=== PATIENT | female | born 1980 | race African-American/Black ===

== ENCOUNTER 2017-08-14 06:52 | Emergency (ER) | payer SELFPAY ==
--- NOTE | 2017-08-14 07:41 | EDPHYS ---
Physician Documentation [facility] Name: Courtney Schuster Age: 37 yrs Sex: Female : 1980 Arrival Date: 08/14/2017 Time: 06:53 Bed 16 Private MD: ED Physician Maxwell Marinelli HPI: 08/14 07:37 This 37 yrs old Black Female presents to ER via Ambulatory with complaints of Ear Pain. rn 07:37 The patient presents with pain. The complaints affect the left ear and left cheek. rn Onset: The symptoms/episode began/occurred 4 day(s) ago. Severity of symptoms: At their worst the symptoms were moderate in the emergency department the symptoms have improved. The patient has not experienced similar symptoms in the past. The patient has not recently seen a physician. Reports left ear and cheek pain, no fever, no drainage, no trauma, states has had problem with teeth before, used oragel and didn't work, no trouble swallowing.. 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 - Social history:: Smoking status: Patient uses tobacco products, smokes one-half pack cigarettes per day. - Family history:: not pertinent. - Hospitalizations: : No recent hospitalization is reported. ROS: 07:37 Constitutional: Negative for fever, chills, and weight loss, Eyes: Negative for injury, rn pain, redness, and discharge, ENT: + left ear/cheek pain Neck: Negative for injury, pain, and swelling, Cardiovascular: Negative for chest pain, palpitations, and edema, Respiratory: Negative for shortness of breath, cough, wheezing, and pleuritic chest pain, Abdomen/GI: Negative for abdominal pain, nausea, vomiting, diarrhea, and constipation, Back: Negative for injury and pain, MS/Extremity: Negative for injury and deformity, Skin: Negative for injury, rash, and discoloration, Neuro: Negative for headache, weakness, numbness, tingling, and seizure. Exam: 07:37 Constitutional: This is a well developed, well nourished patient who is awake, alert, rn and in no acute distress. Head/Face: Normocephalic, atraumatic. Eyes: Pupils equal round and reactive to light, extra-ocular motions intact. Lids and lashes normal. Conjunctiva and sclera are non-icteric and not injected. Cornea within normal limits. Periorbital areas with no swelling, redness, or edema. ENT: Nares patent. No nasal discharge, no septal abnormalities noted. Tympanic membranes are normal and external auditory canals are clear. Poor dentition with multiple caries and fillings, no obvious swelling or infection Neck: Trachea midline, no thyromegaly or masses palpated, and no cervical lymphadenopathy. Supple, full range of motion without nuchal rigidity, or vertebral point tenderness. No Meningismus. Neuro: Awake and alert, GCS 15, oriented to person, place, time, and situation. Cranial nerves II-XII grossly intact. Motor strength 5/5 in all extremities. Sensory grossly intact. Cerebellar exam normal. Normal gait. Vital Signs: 06:59 BP 139 / 82; Pulse 86; Resp 14; Temp 97.1(TE); Pulse Ox 100% on R/A; Weight 86.18 kg lk1 (R); Height 5 ft. 3 in. (160.02 cm) (R); Pain 10/10; 07:56 BP 121 / 86; Pulse 75; Resp 14; Temp 97.8; Pulse Ox 99% on R/A; Pain 7/10; ch 06:59 Body Mass Index 33.66 (86.18 kg, 160.02 cm) lk1 MDM: 07:05 Patient medically screened. rn 07:37 Differential diagnosis: otitis media, otitis externa, acute otalgia, dentalgia. Data rn reviewed: vital signs, nurses notes, and as a result, I will discharge patient. Counseling: I had a detailed discussion with the patient and/or guardian regarding: the historical points, exam findings, and any diagnostic results supporting the discharge/admit diagnosis, the need for outpatient follow up, to return to the emergency department if symptoms worsen or persist or if there are any questions or concerns that arise at home. Special discussion: I discussed with the patient/guardian in detail that at this point there is no indication for admission to the hospital. It is understood, however, that if the symptoms persist or worsen the patient needs to return immediately for re-evaluation. Administered Medications: No medications were administered Disposition: 08/14/17 07:41 Discharged to Home. Impression: Otalgia, left ear. - Condition is Stable. - Discharge Instructions: Dental Pain, Earache. - Prescriptions for Amoxicillin 875 mg Oral Tablet - take 1 tablet by ORAL route every 12 hours for 10 days; 20 tablet. - Work release form, Medication Reconciliation Form, Thank You Letter, Antibiotic Education, Prescription Opioid Use form. - Follow up: Private Physician; When: As needed; Reason: Recheck today's complaints, Re-evaluation by your physician. - Problem is new. - Symptoms have improved. Signatures: Faiza Dumont, RN RN Maxwell Marinelli MD MD rn Kluge, Leah, RN RN lk1
--- NOTE | 2017-08-14 07:41 | ER ---
Nurse's Notes [facility] Name: Courtney Schuster Age: 37 yrs Sex: Female : 1980 Arrival Date: 08/14/2017 Time: 06:53 Bed 16 Private MD: Diagnosis: Otalgia, left ear Presentation: 08/14 06:57 Presenting complaint: Patient states: "Im having bad pain in my ear (left) and I can't lk1 touch it". Transition of care: patient was not received from another setting of care. Onset of symptoms was August 10, 2017. Care prior to arrival: None. 06:57 Method Of Arrival: Ambulatory lk1 06:57 Acuity: LEIF 3 lk1 Triage Assessment: 06:59 General: Appears in no apparent distress. Behavior is calm, cooperative, appropriate lk1 for age. Pain: Complains of pain in left ear Pain currently is 10 out of 10 on a pain scale. EENT: Reports pain in left ear. 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 - Social history:: Smoking status: Patient uses tobacco products, smokes one-half pack cigarettes per day. - Family history:: not pertinent. - Hospitalizations: : No recent hospitalization is reported. Screenin:56 Abuse screen: Denies threats or abuse. Denies injuries from another. Nutritional ch screening: No deficits noted. Tuberculosis screening: No symptoms or risk factors identified. Fall Risk None identified. Assessment: 07:56 General: Appears in no apparent distress. comfortable, Behavior is calm, cooperative, ch appropriate for age. Pain: Complains of pain in left ear and left cheek Pain currently is 7 out of 10 on a pain scale. Neuro: No deficits noted. Cardiovascular: No deficits noted. Respiratory: Airway is patent Respiratory effort is even, unlabored, Breath sounds are clear bilaterally. Derm: Skin is dry, Skin is normal. Vital Signs: 06:59 BP 139 / 82; Pulse 86; Resp 14; Temp 97.1(TE); Pulse Ox 100% on R/A; Weight 86.18 kg lk1 (R); Height 5 ft. 3 in. (160.02 cm) (R); Pain 10/10; 07:56 BP 121 / 86; Pulse 75; Resp 14; Temp 97.8; Pulse Ox 99% on R/A; Pain 7/10; ch 06:59 Body Mass Index 33.66 (86.18 kg, 160.02 cm) lk1 ED Course: 06:53 Patient arrived in ED. am2 06:58 Triage completed. [facility] 07:01 Arm band placed on right wrist. [facility] 07:05 Maxwell Marinelli MD is Attending Physician. rn 07:56 Faiza Dumont RN is Primary Nurse. ch 07:56 No apparent distress. Resting quietly. ch 07:56 Patient has correct armband on for positive identification. Placed in gown. Bed in low ch position. Call light in reach. Side rails up X 1. Adult w/ patient. 07:56 No provider procedures requiring assistance completed. Patient did not have IV access ch during this emergency room visit. Administered Medications: No medications were administered Outcome: 07:41 Discharge ordered by . rn 07:56 Discharged to home ambulatory, with family. 07:56 Condition: improved 07:56 Discharge instructions given to patient, family, Instructed on discharge instructions, follow up and referral plans. Demonstrated understanding of instructions, follow-up care, medications, Prescriptions given X 1. 07:59 Patient left the ED. Signatures: Faiza Dumont, RN RN Maxwell Marinelli MD MD rn Kluge, Leah, RN RN lk1 Breanne Cheek am2
[2017-08-14 08:12] VITALS: BP 121/86; TEMP 97.8; O2SAT 99
== END 2017-08-14 07:59 | disposition home or self-care (01) ==
LOC: ER 06:52
DX: H92.02 Otalgia, left ear; F17.210 Nicotine dependence, cigarettes, uncomplicated
CPT/HCPCS: 99282

== ENCOUNTER 2018-03-23 14:14 | Emergency (ER) | payer SELFPAY ==
[2018-03-23] MEDS ORDERED: IBUPROFEN 200 MG TAB PO ONE ×2 (15:26→15:28)
--- NOTE | 2018-03-23 15:28 | EDPHYS ---
Physician Documentation [facility] Name: Courtney Schuster Age: 37 yrs Sex: Female : 1980 Arrival Date: 03/23/2018 Time: 14:16 Bed 12 Private MD: ED Physician Bertin Lopez HPI: 03/23 14:34 This 37 yrs old Black Female presents to ER via Ambulatory with complaints of Ear Pain, rh1 Jaw Pain. 14:34 The patient presents with pain, that is acute. The complaints affect the left ear and rh1 left jaw. Onset: The symptoms/episode began/occurred 3 day(s) ago. Modifying factors: The symptoms are alleviated by nothing, the symptoms are aggravated by touching. Associated signs and symptoms: Pertinent negatives: cough, fever, nausea, rhinorrhea, sinus trouble, sore throat, vertigo, vomiting. Severity of symptoms: At their worst the symptoms were moderate in the emergency department the symptoms are unchanged. The patient has experienced a previous episode. The patient has not recently seen a physician. She began with left ear pain 3 days ago, and today pain is radiating into left jaw. She reports this am with brushing, has pain at left lower molar. She denies any fever/chills, N/V, sore throat, ear drainage, changes in hearing.. Historical: - Allergies: 14:21 Codeine; la1 14:21 Amoxicillin; la1 - PMHx: 14:21 None; la1 - PSHx: 14:21 ; la1 - Immunization history:: Adult Immunizations up to date. - Social history:: Smoking status: Patient uses tobacco products, smokes one pack cigarettes per day. - Ebola Screening: : No symptoms or risks identified at this time. ROS: 14:34 Constitutional: Negative for fever, chills rh1 14:34 ENT: Positive for dental pain, ear pain, Negative for drainage from ear(s), rhinorrhea, sinus congestion, sore throat, difficulty swallowing, difficulty handling secretions, hoarseness. 14:34 Abdomen/GI: Negative for nausea and vomiting. 14:34 Skin: Negative for cellulitis, rash. 14:34 Neuro: Negative for altered mental status, dizziness. 14:34 All other systems are negative. Exam: 14:34 Constitutional: This is a well developed, well nourished patient who is awake, alert, rh1 and in no acute distress. Head/Face: Normocephalic, atraumatic. 14:34 Neck: Trachea midline, and no cervical lymphadenopathy. Supple, full range of motion without nuchal rigidity. No Meningismus. Cardiovascular: Regular rate and rhythm with a normal S1 and S2. No gallops, murmurs, or rubs. No JVD. No pulse deficits. Respiratory: Lungs have equal breath sounds bilaterally, clear to auscultation. No rales, rhonchi or wheezes noted. No increased work of breathing. Abdomen/GI: Soft, non-tender, with normal bowel sounds. No distension. No guarding or rebound. No evidence of tenderness throughout. Skin: Warm, dry with normal turgor. Normal color with no rashes, no lesions, and no evidence of cellulitis. 14:34 ENT: External ear(s): are unremarkable, no pain with movement, Ear canal(s): are normal, clear, no cerumen impaction, no erythema, no foreign body, no purulent discharge, no swelling, TM's: are normal, no evidence of bulging, no dullness, no erythema, no fluid levels, no hemotympanum, no rupture, normal bony landmarks, Nose: Nasal mucosa: edematous, moist, Turbinates: are swollen bilaterally, Mouth: is normal, (-) tongue elevation (-) trismus no lip abnormalities, no mucosal abnormalities, Gums: reddened, swollen, on the lower left second molar and lower left first molar, moderate tenderness at medial and lateral gums, FOM soft, Posterior pharynx: is normal, airway is patent, no erythema, no exudate, no peritonsilar mass, no pooling of secretions, no swelling, normal tonsil apperance, normal sized tonsils, normal uvula appearance, normal uvula size, Dental exam: cellulitis, is not appreciated, dental caries, that is moderate, specifically in the lower left second molar (#18) and lower left first molar (#19), gum swelling, that is mild, pain, that is moderate, left tragus moderately tender, left coronoid tenderness. 14:34 Neuro: Orientation: is normal, to person, place \T\ time. Mentation: is normal, lucid, able to follow commands, Motor: is normal, moves all fours, Sensation: is normal, numbness, tingling. Vital Signs: 14:21 BP 130 / 100; Pulse 60; Resp 16; Temp 98.3; Pulse Ox 98% on R/A; Weight 86.18 kg; la1 Height 5 ft. 4 in. (162.56 cm); 14:21 Body Mass Index 32.61 (86.18 kg, 162.56 cm) la1 MDM: 14:34 Patient medically screened. rh1 15:27 Data reviewed: vital signs, nurses notes, lab test result(s), and as a result, I will rh1 discharge patient. Data interpreted: Pulse oximetry: on room air is 98 %. Interpretation: normal. Counseling: I had a detailed discussion with the patient and/or guardian regarding: the historical points, exam findings, and any diagnostic results supporting the discharge/admit diagnosis, lab results, the need for outpatient follow up, a dentist, a family practitioner, to return to the emergency department if symptoms worsen or persist or if there are any questions or concerns that arise at home. ED course: She has an appointment with her dentist this week, recommend continued follow up. 03/23 15:14 Order name: Urine Dipstick--Ancillary (enter results) [facility] 03/23 15:14 Order name: Urine --Ancillary (enter results) [facility] 03/23 15:02 Order name: Urine Dipstick-Ancillary (obtain specimen); Complete Time: 15:12 [facility] 03/23 15:02 Order name: Urine Test (obtain specimen); Complete Time: 15:12 [facility] 03/23 15:14 Order name: Urine Dipstick-Ancillary EDMS Administered Medications: 15:20 Drug: Motrin 600 mg Route: PO; hb Disposition: 16:50 Co-signature as Attending Physician, Bertin Lopez MD I agree with the assessment and kdr plan of care. Disposition: 03/23/18 15:27 Discharged to Home. Impression: Dental caries, Otalgia, left ear. - Condition is Stable. - Discharge Instructions: Dental Pain, Earache, Adult. - Prescriptions for Clindamycin HCl 300 mg Oral Capsule - take 1 capsule by ORAL route every 8 hours for 10 days; 30 capsule. Ibuprofen 600 mg Oral Tablet - take 1 tablet by ORAL route every 6 hours As needed take with food; 30 tablet. - Medication Reconciliation Form, Thank You Letter, Antibiotic Education, Prescription Opioid Use form. - Follow up: Private Physician; When: 1 - 2 days; Reason: Recheck today's complaints, Continuance of care, Re-evaluation by your physician. Follow up: Emergency Department; When: As needed; Reason: Fever > 102 F, If symptoms return, Trouble breathing, Worsening of condition. - Problem is new. - Symptoms have improved. Signatures: Dispatcher [employer] EDMS Bertin Lopez MD MD [facility] Jericho Culp RN RN la1 Sudha Zarate NP WINCHMAN/CRANE OPERATOR rh1 Vilma Samson, SIMEON RN hb Corrections: (The following items were deleted from the chart) 15:42 15:27 03/23/2018 15:27 Discharged to Home. Impression: Dental caries; Otalgia, left hb ear. Condition is Stable. Discharge Instructions: Dental Pain, Earache, Adult. Prescriptions for Clindamycin HCl 300 mg Oral Capsule - take 1 capsule by ORAL route every 8 hours for 10 days; 30 capsule, Ibuprofen 600 mg Oral Tablet - take 1 tablet by ORAL route every 6 hours As needed take with food; 30 tablet. and Forms are Medication Reconciliation Form, Thank You Letter, Antibiotic Education, Prescription Opioid Use. Follow up: Private Physician; When: 1 - 2 days; Reason: Recheck today's complaints, Continuance of care, Re-evaluation by your physician. Follow up: Emergency Department; When: As needed; Reason: Fever > 102 F, If symptoms return, Trouble breathing, Worsening of condition. Problem is new. Symptoms have improved. rh1
--- NOTE | 2018-03-23 15:28 | ER ---
Nurse's Notes [facility] Name: Courtney Schuster Age: 37 yrs Sex: Female : 1980 Arrival Date: 03/23/2018 Time: 14:16 Bed 12 Private MD: Diagnosis: Dental caries;Otalgia, left ear Presentation: 03/23 14:20 Presenting complaint: Patient states: left lower jaw pain, side of face pain since la1 . Transition of care: patient was not received from another setting of care. Onset of symptoms was March 23, 2018. Risk Assessment: Do you want to hurt yourself or someone else? Patient reports no desire to harm self or others. Initial Sepsis Screen: Does the patient meet any 2 criteria? No. Patient's initial sepsis screen is negative. Does the patient have a suspected source of infection? No. Patient's initial sepsis screen is negative. Care prior to arrival: None. 14:20 Method Of Arrival: Ambulatory la1 14:20 Acuity: LEIF 4 la1 Historical: - Allergies: 14:21 Codeine; la1 14:21 Amoxicillin; la1 - PMHx: 14:21 None; la1 - PSHx: 14:21 ; la1 - Immunization history:: Adult Immunizations up to date. - Social history:: Smoking status: Patient uses tobacco products, smokes one pack cigarettes per day. - Ebola Screening: : No symptoms or risks identified at this time. Screenin:24 Abuse screen: Denies threats or abuse. Nutritional screening: No deficits noted. la1 Tuberculosis screening: No symptoms or risk factors identified. Fall Risk None identified. Assessment: 14:23 General: Appears in no apparent distress. Behavior is calm, cooperative. Pain: la1 Complains of pain in left ear, left cheek and left jaw. Neuro: Level of Consciousness is awake, alert, obeys commands, Oriented to person, place, time, situation. Cardiovascular: Capillary refill < 3 seconds Patient's skin is warm and dry. Respiratory: Airway is patent Respiratory effort is even, unlabored, Respiratory pattern is regular, symmetrical, Breath sounds are clear bilaterally. GI: Abdomen is round non-distended. EENT: Ear canal clear on left ear and right ear Pinna with no deformity noted on left ear and right ear Poor dentition noted. Dental caries noted in lower left second molar (#18) and lower left first molar (#19). Vital Signs: 14:21 BP 130 / 100; Pulse 60; Resp 16; Temp 98.3; Pulse Ox 98% on R/A; Weight 86.18 kg; la1 Height 5 ft. 4 in. (162.56 cm); 14:21 Body Mass Index 32.61 (86.18 kg, 162.56 cm) la1 ED Course: 14:16 Patient arrived in ED. as 14:19 Sudha Zarate NP is PHCP. rh1 14:19 Bertin Lopez MD is Attending Physician. rh1 14:20 Triage completed. la1 14:21 Arm band placed on right wrist. la1 14:24 Call light in reach. la1 15:16 Urine Dipstick--Ancillary (enter results) Sent. hb 15:41 Vilma Samson RN is Primary Nurse. hb Administered Medications: 15:20 Drug: Motrin 600 mg Route: PO; hb Outcome: 15:27 Discharge ordered by . rh1 15:42 Patient left the ED. hb Signatures: Sade Allen Lee, RN RN la1 Sudha Zarate NP CHAIR FRAME BUILDER rh1 Vilma Samson, SIMEON RN hb
[2018-03-23 15:36] LABS: Urine Blood 1+ (NEG); Urine Glucose NEGATIVE (NEG); Urine Protein NEGATIVE (NEG)
[2018-03-23 15:47] VITALS: BP 130/100; TEMP 98.3; O2SAT 98
== END 2018-03-23 15:42 | disposition home or self-care (01) ==
LOC: ER 14:14
DX: K02.9 Dental caries, unspecified (principal); F17.210 Nicotine dependence, cigarettes, uncomplicated; Z88.1 Allergy status to other antibiotic agents; Z88.5 Allergy status to narcotic agent
CPT/HCPCS: 81003; 81025; 99283

== ENCOUNTER 2018-11-06 09:13 | Emergency (ER) | payer SELFPAY ==
[2018-11-06] MEDS ORDERED: LIDOCAINE 1% 20 ML MDV ONE (10:44)
[2018-11-06] MEDS ORDERED: MEPERIDINE HCL 50 MG/ML AMP ONE (10:44)
[2018-11-06] MEDS ORDERED: ONDANSETRON 4 MG (ODT) TAB ONE (10:44)
--- NOTE | 2018-11-06 12:19 | EDPHYS ---
Physician Documentation [facility] Name: Courtney Schuster Age: 38 yrs Sex: Female : 1980 Arrival Date: 11/06/2018 Time: 09:17 Bed 20 Private MD: ED Physician Bertin Lopez HPI: 11/06 11:09 This 38 yrs old Black Female presents to ER via Ambulatory with complaints of jr8 Toothache, Facial Swelling, Nausea. 11:09 The patient presents with pain, swelling. The problem is located in the mouth. Onset: jr8 The symptoms/episode began/occurred acutely, yesterday. Duration: The symptoms are continuous, and are unchanged since they started. Modifying factors: The symptoms are alleviated by nothing, the symptoms are aggravated by chewing, talking. Associated signs and symptoms: The patient has no apparent associated signs or symptoms. Severity of symptoms: At their worst the symptoms were moderate, in the emergency department the symptoms are unchanged. The patient has not experienced similar symptoms in the past. The patient has not recently seen a physician. Historical: - Allergies: 09:21 Amoxicillin; ss 09:21 Codeine; ss - Home Meds: :21 None [Active]; ss - PMHx: 09:21 None; ss - PSHx: 09:21 ; ss - Immunization history:: Adult Immunizations up to date. - Social history:: Smoking status: Patient uses tobacco products, smokes one-half pack cigarettes per day. - Ebola Screening: : Patient denies exposure to infectious person Patient denies travel to an Ebola-affected area in the 21 days before illness onset. ROS: 11:09 Eyes: Negative for injury, pain, redness, and discharge, ENT: Positive for dental pain jr8 and swelling Neck: Negative for injury, pain, and swelling, Cardiovascular: Negative for chest pain, palpitations, and edema, Respiratory: Negative for shortness of breath, cough, wheezing, and pleuritic chest pain, Abdomen/GI: Negative for abdominal pain, nausea, vomiting, diarrhea, and constipation, Back: Negative for injury and pain, MS/Extremity: Negative for injury and deformity, Skin: Negative for injury, rash, and discoloration, Neuro: Negative for headache, weakness, numbness, tingling, and seizure. Exam: 11:09 Eyes: Pupils equal round and reactive to light, extra-ocular motions intact. Lids and jr8 lashes normal. Conjunctiva and sclera are non-icteric and not injected. Cornea within normal limits. Periorbital areas with no swelling, redness, or edema. Neck: Trachea midline, no thyromegaly or masses palpated, and no cervical lymphadenopathy. Supple, full range of motion without nuchal rigidity, or vertebral point tenderness. No Meningismus. Cardiovascular: Regular rate and rhythm with a normal S1 and S2. No gallops, murmurs, or rubs. Normal PMI, no JVD. No pulse deficits. Respiratory: Lungs have equal breath sounds bilaterally, clear to auscultation and percussion. No rales, rhonchi or wheezes noted. No increased work of breathing, no retractions or nasal flaring. Abdomen/GI: Soft, non-tender, with normal bowel sounds. No distension or tympany. No guarding or rebound. No evidence of tenderness throughout. Back: No spinal tenderness. No costovertebral tenderness. Full range of motion. Skin: Warm, dry with normal turgor. Normal color with no rashes, no lesions, and no evidence of cellulitis. MS/ Extremity: Pulses equal, no cyanosis. Neurovascular intact. Full, normal range of motion. Neuro: Awake and alert, GCS 15, oriented to person, place, time, and situation. Cranial nerves II-XII grossly intact. Motor strength 5/5 in all extremities. Sensory grossly intact. Cerebellar exam normal. Normal gait. 11:09 Head/face: Noted is swelling, that is mild, of the left jaw, tenderness, that is mild, of the left jaw. 11:09 ENT: Exam is negative for earache, ear discharge, TM abnormalities, nasal discharge, peritonsillar abscess pharyngitis, exudate, Dental exam: abscess, that is mild, specifically in the lower left second bicuspid (#20), gum swelling, that is moderate, specifically in the lower left second bicuspid (#20), pain, that is moderate, specifically in the lower left second bicuspid (#20). Vital Signs: 09:21 BP 139 / 82; Pulse 73; Resp 16; Temp 97.5(TE); Pulse Ox 99% on R/A; Weight 88.45 kg; ss Height 5 ft. 3 in. (160.02 cm); Pain 8/10; 10:30 BP 136 / 86; Pulse 68; Resp 14; Pulse Ox 100% on R/A; hb 12:00 BP 132 / 80; Pulse 58; Resp 15; Pulse Ox 98% on R/A; hb 09:21 Body Mass Index 34.54 (88.45 kg, 160.02 cm) Procedures: 12:16 I \T\ D: Incision and drainage was performed for an abscess of the left lower left second jr8 bicuspid (#20) Incised with #11 blade. Drained small amount purulent fluid. Dressing: sterile 4x4 gauze, the patient tolerated the procedure well. Nerve block: (dental) of left inferior alveolar nerve, Medication: Lidocaine 1% without epinephrine Amount: 2 mls were injected, Effect: the patient's symptoms are improved, markedly, Set up for procedure. Performed by Shakir GONZALEZ Patient tolerated well. MDM: 10:05 Patient medically screened. jr8 12:16 Data reviewed: vital signs, nurses notes, and as a result, I will discharge patient. jr8 Data interpreted: Pulse oximetry: on room air is 98 %. Interpretation: normal. Counseling: I had a detailed discussion with the patient and/or guardian regarding: the historical points, exam findings, and any diagnostic results supporting the discharge/admit diagnosis, the need for outpatient follow up, a dentist, to return to the emergency department if symptoms worsen or persist or if there are any questions or concerns that arise at home. Administered Medications: 10:40 Drug: Demerol 50 mg Route: IM; Site: left ventrogluteal; hb 11:30 Follow up: Response: No adverse reaction hb 10:40 Drug: Zofran 4 mg Route: PO; hb 11:30 Follow up: Response: No adverse reaction hb 11:01 Drug: Lidocaine (1 %) 1 vials {Note: administered by CARLOS Schilling.} Volume: 20 ml; Route: hb Infiltration; 11:30 Follow up: Response: No adverse reaction hb Disposition: 14:17 Co-signature as Attending Physician, Bertin Lopez MD I agree with the assessment and kdr plan of care. Disposition: 11/06/18 12:18 Discharged to Home. Impression: Periapical abscess with sinus. - Condition is Stable. - Discharge Instructions: Dental Abscess, Dental Pain. - Prescriptions for Clindamycin HCl 300 mg Oral Capsule - take 1 capsule by ORAL route every 6 hours for 10 days; 40 capsule. Tramadol 50 mg Oral Tablet - take 2 tablet by ORAL route every 8 hours as needed; 12 tablet. - Work release form, Medication Reconciliation Form, Thank You Letter, Antibiotic Education, Prescription Opioid Use form. - Follow up: Private Physician; When: 2 - 3 days; Reason: Recheck today's complaints, Continuance of care, Re-evaluation by your physician. - Problem is new. - Symptoms have improved. Signatures: Bertin Lopez MD MD [facility] [address] Gisela Hugo RN RN Shakir Ni PA PA jr8 Vilma Samson RN RN Corrections: (The following items were deleted from the chart) 12:52 12:18 11/06/2018 12:18 Discharged to Home. Impression: Periapical abscess with sinus. hb Condition is Stable. Forms are Medication Reconciliation Form, Thank You Letter, Antibiotic Education, Prescription Opioid Use. Follow up: Private Physician; When: 2 - 3 days; Reason: Recheck today's complaints, Continuance of care, Re-evaluation by your physician. Problem is new. Symptoms have improved. jr8
--- NOTE | 2018-11-06 12:19 | ER ---
Nurse's Notes [facility] Name: Courtney Schuster Age: 38 yrs Sex: Female : 1980 Arrival Date: 11/06/2018 Time: 09:17 Bed 20 Private MD: Diagnosis: Periapical abscess with sinus Presentation: 11/06 09:20 Presenting complaint: Patient states: dental pain that began yesterday, facial swelling ss to area that began this morning. Transition of care: patient was not received from another setting of care. Onset of symptoms was November 05, 2018. Risk Assessment: Do you want to hurt yourself or someone else? Patient reports no desire to harm self or others. Initial Sepsis Screen: Does the patient meet any 2 criteria? No. Patient's initial sepsis screen is negative. Does the patient have a suspected source of infection? Yes: Other: dental. Care prior to arrival: None. 09:20 Method Of Arrival: Ambulatory ss 09:20 Acuity: LEIF 3 ss Historical: - Allergies: 09:21 Amoxicillin; ss 09:21 Codeine; ss - Home Meds: 09:21 None [Active]; ss - PMHx: 09:21 None; ss - PSHx: 09:21 ; ss - Immunization history:: Adult Immunizations up to date. - Social history:: Smoking status: Patient uses tobacco products, smokes one-half pack cigarettes per day. - Ebola Screening: : Patient denies exposure to infectious person Patient denies travel to an Ebola-affected area in the 21 days before illness onset. Screenin:19 Abuse screen: Denies threats or abuse. Denies injuries from another. Nutritional hb screening: No deficits noted. Tuberculosis screening: No symptoms or risk factors identified. Fall Risk None identified. Assessment: 09:45 General: Appears in no apparent distress. Behavior is calm, cooperative. Pain: Pain hb currently is 9 out of 10 on a pain scale. Neuro: Level of Consciousness is awake, alert, obeys commands, Oriented to person, place, time, situation. Cardiovascular: Capillary refill < 3 seconds Patient's skin is warm and dry. Respiratory: Airway is patent Respiratory effort is even, unlabored, Respiratory pattern is regular, symmetrical. GI: No signs and/or symptoms were reported involving the gastrointestinal system. : No signs and/or symptoms were reported regarding the genitourinary system. EENT: left sided facial swellilng. Derm: Skin is intact, is healthy with good turgor. Musculoskeletal: No signs and/or symptoms reported regarding the musculoskeletal system. 11:00 Reassessment: Patient appears in no apparent distress at this time. No changes from hb previously documented assessment. Patient and/or family updated on plan of care and expected duration. Pain level reassessed. Patient is alert, oriented x 3, equal unlabored respirations, skin warm/dry/pink. 12:03 Reassessment: Patient appears in no apparent distress at this time. Patient and/or hb family updated on plan of care and expected duration. Pain level reassessed. Patient is alert, oriented x 3, equal unlabored respirations, skin warm/dry/pink. Vital Signs: 09:21 BP 139 / 82; Pulse 73; Resp 16; Temp 97.5(TE); Pulse Ox 99% on R/A; Weight 88.45 kg; ss Height 5 ft. 3 in. (160.02 cm); Pain 8/10; 10:30 BP 136 / 86; Pulse 68; Resp 14; Pulse Ox 100% on R/A; hb 12:00 BP 132 / 80; Pulse 58; Resp 15; Pulse Ox 98% on R/A; hb 09:21 Body Mass Index 34.54 (88.45 kg, 160.02 cm) ED Course: 09:17 Patient arrived in ED. as 09:20 Triage completed. ss 09:21 Arm band placed on left wrist. ss 10:05 Shakir Ni PA is PHCP. 8 10:05 Bertin Lopez MD is Attending Physician. jr8 10:19 Vilma Samson, SIMEON is Primary Nurse. hb 10:19 Patient has correct armband on for positive identification. Bed in low position. Call hb light in reach. Side rails up X 1. 12:50 No provider procedures requiring assistance completed. Patient did not have IV access hb during this emergency room visit. Administered Medications: 10:40 Drug: Demerol 50 mg Route: IM; Site: left ventrogluteal; hb 11:30 Follow up: Response: No adverse reaction hb 10:40 Drug: Zofran 4 mg Route: PO; hb 11:30 Follow up: Response: No adverse reaction hb 11:01 Drug: Lidocaine (1 %) 1 vials {Note: administered by CARLOS Schilling.} Volume: 20 ml; Route: hb Infiltration; 11:30 Follow up: Response: No adverse reaction hb Outcome: 12:18 Discharge ordered by MD. jones 12:50 Discharged to home ambulatory, with significant other. hb 12:50 Condition: stable 12:50 Discharge instructions given to patient, Instructed on discharge instructions, follow up and referral plans. medication usage, Demonstrated understanding of instructions, follow-up care, medications, Prescriptions given X 2. 12:52 Patient left the ED. hb Signatures: Sade Allen Shelby, RN RN ss Shakir Ni PA PA jr8 Baxter, Heather, SIMEON RN hb
[2018-11-06 13:19] VITALS: TEMP 97.5
[2018-11-06 13:22] VITALS: BP 132/80; O2SAT 98
== END 2018-11-06 12:52 | disposition home or self-care (01) ==
LOC: ER 09:13
PROC: 0C9XXZ0 Drainage of Lower Tooth, External Approach, Single (ICD-10-PCS; principal; 2018-11-06)
DX: K04.6 Periapical abscess with sinus (principal); Z88.5 Allergy status to narcotic agent; Z88.0 Allergy status to penicillin; F17.210 Nicotine dependence, cigarettes, uncomplicated
CPT/HCPCS: 96372; 99283; J2175

== ENCOUNTER 2018-12-26 22:55 | Emergency (ER) | payer SELFPAY ==
--- NOTE | 2018-12-26 23:33 | ER ---
Nurse's Notes [facility] Name: Courtney Schuster Age: 38 yrs Sex: Female : 1980 Arrival Date: 12/26/2018 Time: 22:56 Bed 19 Private MD: Diagnosis: Periapical abscess without sinus Presentation: 12/26 23:05 Presenting complaint: Patient states: around 0800 today morning I notice my left jaw rr5 getting swollen but its getting big now. I took an appointment to dentist on Sunday. denies pain. 23:05 Transition of care: patient was not received from another setting of care. Onset of rr5 symptoms was December 26, 2018. Risk Assessment: Do you want to hurt yourself or someone else? Patient reports no desire to harm self or others. Initial Sepsis Screen: Does the patient meet any 2 criteria? No. Patient's initial sepsis screen is negative. Does the patient have a suspected source of infection? No. Patient's initial sepsis screen is negative. Care prior to arrival: Medication(s) given: ibuprofen. 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 - Social history:: Smoking status: Patient uses tobacco products, smokes one pack cigarettes per day. Patient/guardian denies using alcohol, street drugs. - Ebola Screening: : Patient negative for fever greater than or equal to 101.5 degrees Fahrenheit, and additional compatible Ebola Virus Disease symptoms Patient denies exposure to infectious person Patient denies travel to an Ebola-affected area in the 21 days before illness onset. Screenin:15 Abuse screen: Denies threats or abuse. Denies injuries from another. Nutritional rr5 screening: No deficits noted. Tuberculosis screening: No symptoms or risk factors identified. Fall Risk None identified. Total Mckeon Fall Scale indicates No Risk (0-24 pts). Assessment: 23:05 General: Appears in no apparent distress. comfortable, Behavior is calm, cooperative, rr5 appropriate for age. Pain: Denies pain. Neuro: Level of Consciousness is awake, alert, obeys commands, Oriented to person, place, time, situation, Appropriate for age. Cardiovascular: Capillary refill < 3 seconds Patient's skin is warm and dry. Respiratory: Airway is patent Respiratory effort is even, labored, Respiratory pattern is regular, symmetrical. GI: No signs and/or symptoms were reported involving the gastrointestinal system. : No signs and/or symptoms were reported regarding the genitourinary system. EENT: swelling left molar and left cheek. Reports swelling left cheek area. 23:05 Derm: No signs and/or symptoms reported regarding the dermatologic system. rr5 Musculoskeletal: Circulation, motion, and sensation intact. Capillary refill < 3 seconds. 23:50 Reassessment: Patient appears in no apparent distress at this time. Patient is alert, rr5 oriented x 3, equal unlabored respirations, skin warm/dry/pink. discharge instruction given and explained without complaints made. Vital Signs: 23:05 BP 148 / 95; Pulse 85; Resp 17; Temp 98.3; Pulse Ox 100% ; Weight 88.45 kg; Height 5 rr5 ft. 4 in. (162.56 cm); Pain 0/10; 23:50 BP 135 / 82; Pulse 80; Resp 16; Pulse Ox 98% on R/A; rr5 23:05 Body Mass Index 33.47 (88.45 kg, 162.56 cm) rr5 ED Course: 22:56 Patient arrived in ED. am2 22:59 Marty Oro RN is Primary Nurse. rr5 23:02 Demetra Owens FNP-C is [facility]. snw 23:02 Esteban Tidwell MD is Attending Physician. snw 23:05 Arm band placed on right wrist. rr5 23:05 Patient has correct armband on for positive identification. Bed in low position. rr5 23:13 Triage completed. rr5 23:47 No provider procedures requiring assistance completed. Patient did not have IV access rr5 during this emergency room visit. Administered Medications: 23:40 Drug: Clindamycin 300 mg Route: PO; rr5 23:50 Follow up: Response: Medication administered at discharge. rr5 Outcome: 23:32 Discharge ordered by MD. bartlett 23:47 Discharged to home ambulatory. rr5 23:47 Condition: stable 23:47 Discharge instructions given to patient, Instructed on discharge instructions, follow up and referral plans. medication usage, Demonstrated understanding of instructions, follow-up care, medications, Prescriptions given X 2. 23:51 Patient left the ED. rr5 Signatures: Demetra Owens, WATER FILTER CLEANER-C WATER FILTER CLEANER-Csnw Breanne Cheek Raymond, RN RN rr5
--- NOTE | 2018-12-26 23:34 | EDPHYS ---
Physician Documentation [facility] Name: Courtney Schuster Age: 38 yrs Sex: Female : 1980 Arrival Date: 12/26/2018 Time: 22:56 Bed 19 Private MD: ED Physician Esteban Tidwell HPI: 12/26 23:27 This 38 yrs old Black Female presents to ER via Ambulatory with complaints of Jaw Pain snw - swelling. 23:27 Onset: The symptoms/episode began/occurred acutely. Associated signs and symptoms: snw Pertinent positives: left mandibular swelling. Modifying factors: The patient symptoms are alleviated by denies pain but noted increased swelling. It is unknown whether or not the patient has had similar symptoms in the past. dental appt on Sunday. 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 - Social history:: Smoking status: Patient uses tobacco products, smokes one pack cigarettes per day. Patient/guardian denies using alcohol, street drugs. - Ebola Screening: : Patient negative for fever greater than or equal to 101.5 degrees Fahrenheit, and additional compatible Ebola Virus Disease symptoms Patient denies exposure to infectious person Patient denies travel to an Ebola-affected area in the 21 days before illness onset. ROS: 23:28 Constitutional: Negative for fever, chills, and weight loss, Eyes: Negative for injury, snw pain, redness, and discharge, Neck: Negative for injury, pain, and swelling, Cardiovascular: Negative for chest pain, palpitations, and edema, Respiratory: Negative for shortness of breath, cough, wheezing, and pleuritic chest pain, Abdomen/GI: Negative for abdominal pain, nausea, vomiting, diarrhea, and constipation, Back: Negative for injury and pain, : Negative for injury, bleeding, discharge, and swelling, MS/Extremity: Negative for injury and deformity, Skin: Negative for injury, rash, and discoloration, Neuro: Negative for headache, weakness, numbness, tingling, and seizure, Psych: Negative for depression, anxiety, suicide ideation, homicidal ideation, and hallucinations. 23:28 ENT: Positive for mandibular edema. Exam: 23:28 Constitutional: This is a well developed, well nourished patient who is awake, alert, snw and in no acute distress. Head/Face: Normocephalic, atraumatic. Eyes: Pupils equal round and reactive to light, extra-ocular motions intact. Lids and lashes normal. Conjunctiva and sclera are non-icteric and not injected. Cornea within normal limits. Periorbital areas with no swelling, redness, or edema. Neck: Trachea midline, no thyromegaly or masses palpated, and no cervical lymphadenopathy. Supple, full range of motion without nuchal rigidity, or vertebral point tenderness. No Meningismus. Chest/axilla: Normal chest wall appearance and motion. Nontender with no deformity. No lesions are appreciated. Cardiovascular: Regular rate and rhythm with a normal S1 and S2. No gallops, murmurs, or rubs. Normal PMI, no JVD. No pulse deficits. Respiratory: Lungs have equal breath sounds bilaterally, clear to auscultation and percussion. No rales, rhonchi or wheezes noted. No increased work of breathing, no retractions or nasal flaring. Abdomen/GI: Soft, non-tender, with normal bowel sounds. No distension or tympany. No guarding or rebound. No evidence of tenderness throughout. Back: No spinal tenderness. No costovertebral tenderness. Full range of motion. Skin: Warm, dry with normal turgor. Normal color with no rashes, no lesions, and no evidence of cellulitis. MS/ Extremity: Pulses equal, no cyanosis. Neurovascular intact. Full, normal range of motion. Neuro: Awake and alert, GCS 15, oriented to person, place, time, and situation. Cranial nerves II-XII grossly intact. Motor strength 5/5 in all extremities. Sensory grossly intact. Cerebellar exam normal. Normal gait. Psych: Awake, alert, with orientation to person, place and time. Behavior, mood, and affect are within normal limits. 23:28 ENT: Dental exam: abscess, that is moderate, specifically in the lower left first molar (#19), not fluctuant. Vital Signs: 23:05 BP 148 / 95; Pulse 85; Resp 17; Temp 98.3; Pulse Ox 100% ; Weight 88.45 kg; Height 5 rr5 ft. 4 in. (162.56 cm); Pain 0/10; 23:50 BP 135 / 82; Pulse 80; Resp 16; Pulse Ox 98% on R/A; rr5 23:05 Body Mass Index 33.47 (88.45 kg, 162.56 cm) rr5 MDM: 23:02 Patient medically screened. snw 23:36 Data reviewed: vital signs, nurses notes. Data interpreted: Pulse oximetry: on room air snw is 100 %. Interpretation: normal. Counseling: I had a detailed discussion with the patient and/or guardian regarding: the historical points, exam findings, and any diagnostic results supporting the discharge/admit diagnosis, the presence of at least one elevated blood pressure reading (>120/80) during this emergency department visit, the need for outpatient follow up, to return to the emergency department if symptoms worsen or persist or if there are any questions or concerns that arise at home. Special discussion: I have referred the patient to see his PCP for further evaluation of high blood pressure. Based on the history and exam findings, there is no indication for further emergent testing or inpatient evaluation. I discussed with the patient/guardian the need to see a dentist for further evaluation of the symptoms. I discussed with the patient/guardian the need to see the primary care provider for further evaluation of the symptoms. Administered Medications: 23:40 Drug: Clindamycin 300 mg Route: PO; rr5 23:50 Follow up: Response: Medication administered at discharge. rr5 Disposition: 12/27 06:58 Co-signature as Attending Physician, Esteban Tidwell MD Available for consultation at ps1 all times . Disposition: 12/26/18 23:32 Discharged to Home. Impression: Periapical abscess without sinus. - Condition is Stable. - Discharge Instructions: Dental Abscess, Root Canal, Diet and Dental Disease. - Prescriptions for Clindamycin HCl 150 mg Oral Capsule - take 1 capsule by ORAL route every 6 hours for 10 days; 40 capsule. chlorhexidine gluconate 0.12 % Mucous Membrane mouthwash - place 15 milliliter by MUCOUS MEMBRANE route 2 times per day after brushing teeth, swish in mouth for 30 seconds then spit out; 480 milliliter. - Medication Reconciliation Form, Thank You Letter, Antibiotic Education, Prescription Opioid Use form. - Follow up: Private Physician; When: 2 - 3 days; Reason: Recheck today's complaints, Continuance of care, Re-evaluation by your physician. Follow up: Emergency Department; When: As needed; Reason: Worsening of condition. Signatures: Demetra Owens, TRANSPORTATION SOLUTIONS MANAGER-C TRANSPORTATION SOLUTIONS MANAGER-Csnw Esteban Tidwell MD MD ps1 Marty Oro RN RN rr5 Corrections: (The following items were deleted from the chart) 12/26 23:51 23:32 12/26/2018 23:32 Discharged to Home. Impression: Periapical abscess without rr5 sinus. Condition is Stable. Forms are Medication Reconciliation Form, Thank You Letter, Antibiotic Education, Prescription Opioid Use. Follow up: Private Physician; When: 2 - 3 days; Reason: Recheck today's complaints, Continuance of care, Re-evaluation by your physician. Follow up: Emergency Department; When: As needed; Reason: Worsening of condition. snw
[2018-12-26] MEDS ORDERED: CLINDAMYCIN HCL 150 MG CAP ONE (23:37)
[2018-12-27 00:30] VITALS: TEMP 98.3
[2018-12-27 00:31] VITALS: BP 135/82; O2SAT 98
== END 2018-12-26 23:51 | disposition home or self-care (01) ==
LOC: ER 22:55
DX: K04.7 Periapical abscess without sinus (principal); F17.210 Nicotine dependence, cigarettes, uncomplicated; Z88.0 Allergy status to penicillin; Z88.1 Allergy status to other antibiotic agents; Z88.5 Allergy status to narcotic agent
CPT/HCPCS: 99283

== ENCOUNTER 2019-02-15 00:22 | Emergency (ER) | payer SELFPAY ==
[2019-02-15 01:07] LABS: Absolute Lymphocytes (CBC) 2.7 K/uL (0.7-4.9); Basophils % 1.1 % (0-1.3); Lymphocytes % 36.3 % (15.3-44.8); MPV 9.6 fL (7.6-11.3); RBC Red Blood Cell Count 4.86 M/uL (3.86-4.86)
[2019-02-15 01:15] LABS: Albumin 3.8 g/dL (3.4-5.0); Bilirubin Total 0.2 mg/dL (0.2-1.0); Potassium 3.7 mmol/L (3.5-5.1); Protein, Total 7.2 g/dL (6.4-8.2)
[2019-02-15] MEDS ORDERED: FENTANYL CITR 100 MCG/2 ML ONE (01:20)
[2019-02-15] MEDS ORDERED: ONDANSETRON 4 MG/2 ML VIAL ONE (01:20)
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
[2019-02-15 04:13] VITALS: BP 120/60; TEMP 97.8; O2SAT 98
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
== END 2019-02-15 04:04 | disposition home or self-care (01) ==
LOC: ER 00:22
DX: S13.4XXA Sprain of ligaments of cervical spine, initial encounter (principal); S30.0XXA Contusion of lower back and pelvis, initial encounter; V40.5XXA Car driver injured in collision with pedestrian or animal in traffic accident, initial encounter; Z88.0 Allergy status to penicillin; Z88.1 Allergy status to other antibiotic agents; Z88.5 Allergy status to narcotic agent
CPT/HCPCS: 36415; 70450; 71260; 72125; 74177; 80053; 85025; 96374; 96375; 99284; J2405; J3010; Q9967

== ENCOUNTER 2019-04-19 11:12 | Emergency (ER) | payer SELFPAY ==
[2019-04-19] MEDS ORDERED: HYDROCODONE/APAP 10/325 TAB ONE (12:18)
[2019-04-19 12:57] LABS: Absolute Lymphocytes (CBC) 2.4 K/uL (0.7-4.9); Basophils % 0.6 % (0-1.3); Hematocrit 36.9 % (36.0-45.0); Lymphocytes % 36.5 % (15.3-44.8); MPV 9.3 fL (7.6-11.3)
[2019-04-19 13:07] LABS: ALT/SGPT 24 U/L (12-78); AST/SGOT 18 U/L (15-37); Albumin 3.5 g/dL (3.4-5.0); Alkaline Phosphatase 71 U/L (45-117); BUN Blood Urea Nitrogen 9 mg/dL (7-18); Bicarbonate 27 mmol/L (21-32); Bilirubin Total 0.4 mg/dL (0.2-1.0); Glucose Level 87 mg/dL (74-106); Potassium 3.7 mmol/L (3.5-5.1); Protein, Total 7.1 g/dL (6.4-8.2); Sodium Level 142 mmol/L (136-145)
--- NOTE | 2019-04-19 13:10 | EDPHYS ---
Physician Documentation [facility] Name: Courtney Schuster Age: 38 yrs Sex: Female : 1980 Arrival Date: 04/19/2019 Time: 11:14 Bed 25 Private MD: ED Physician Maxwell Marinelli HPI: 04/19 12:20 This 38 yrs old Black Female presents to ER via Ambulatory with complaints of Mouth nh Problem. 12:20 The patient presents with pain, swelling. The problem is located in the lower left nh third molar and lower left second molar. Onset: The symptoms/episode began/occurred 2 day(s) ago. Duration: The symptoms are continuous. Modifying factors: The symptoms are alleviated by nothing, the symptoms are aggravated by chewing, talking. Associated signs and symptoms: Pertinent positives: nausea, vomiting. Severity of symptoms: At their worst the symptoms were moderate, just prior to arrival, in the emergency department the symptoms are unchanged. The patient has not experienced similar symptoms in the past. The patient has not recently seen a physician. 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 - Social history:: Smoking status: Patient/guardian denies using tobacco. - Ebola Screening: : No symptoms or risks identified at this time. ROS: 12:20 Constitutional: Negative for fever, chills, and weight loss, Eyes: Negative for injury, nh pain, redness, and discharge, Neck: Negative for injury, pain, and swelling, Cardiovascular: Negative for chest pain, palpitations, and edema, Respiratory: Negative for shortness of breath, cough, wheezing, and pleuritic chest pain, Abdomen/GI: Negative for abdominal pain, nausea, vomiting, diarrhea, and constipation, Back: Negative for injury and pain, : Negative for injury, bleeding, discharge, and swelling, MS/Extremity: Negative for injury and deformity, Skin: Negative for injury, rash, and discoloration, Neuro: Negative for headache, weakness, numbness, tingling, and seizure, Psych: Negative for depression, anxiety, suicide ideation, homicidal ideation, and hallucinations. 12:20 ENT: Positive for dental pain, Negative for sore throat, difficulty swallowing, difficulty handling secretions. Exam: 12:20 Constitutional: This is a well developed, well nourished patient who is awake, alert, nh and in no acute distress. Head/Face: Normocephalic, atraumatic. Eyes: Pupils equal round and reactive to light, extra-ocular motions intact. Lids and lashes normal. Conjunctiva and sclera are non-icteric and not injected. Cornea within normal limits. Periorbital areas with no swelling, redness, or edema. Neck: Trachea midline, no thyromegaly or masses palpated, and no cervical lymphadenopathy. Supple, full range of motion without nuchal rigidity, or vertebral point tenderness. No Meningismus. Chest/axilla: Normal chest wall appearance and motion. Nontender with no deformity. No lesions are appreciated. Cardiovascular: Regular rate and rhythm with a normal S1 and S2. No gallops, murmurs, or rubs. Normal PMI, no JVD. No pulse deficits. Respiratory: Lungs have equal breath sounds bilaterally, clear to auscultation and percussion. No rales, rhonchi or wheezes noted. No increased work of breathing, no retractions or nasal flaring. Abdomen/GI: Soft, non-tender, with normal bowel sounds. No distension or tympany. No guarding or rebound. No evidence of tenderness throughout. Back: No spinal tenderness. No costovertebral tenderness. Full range of motion. 12:20 ENT: External ear(s): are unremarkable, Ear canal(s): are normal, TM's: are normal, Nose: is normal, Mouth: is normal, Posterior pharynx: is normal, Dental exam: gum swelling, that is moderate, specifically in the lower left second molar and lower left third molar, pain. Vital Signs: 11:41 BP 107 / 77; Pulse 73; Resp 16; Temp 98.3; Pulse Ox 100% on R/A; Weight 90.26 kg; hb Height 5 ft. 3 in. (160.02 cm); Pain 10/10; 13:19 BP 110 / 78; Pulse 71; Resp 18; Temp 98; Pulse Ox 100% on R/A; Pain 0/10; mg2 11:41 Body Mass Index 35.25 (90.26 kg, 160.02 cm) MDM: 11:58 Patient medically screened. vt 13:08 Data reviewed: vital signs, nurses notes, lab test result(s), I have discussed the vt patient's presentation/case with the attending Emergency Department Physician; and as a result, I will discharge patient. Counseling: I had a detailed discussion with the patient and/or guardian regarding: the historical points, exam findings, and any diagnostic results supporting the discharge/admit diagnosis, lab results, the need for outpatient follow up, to return to the emergency department if symptoms worsen or persist or if there are any questions or concerns that arise at home. 04/19 12:12 Order name: CBC with Diff; Complete Time: 13:06 vt 04/19 12:12 Order name: CMP; Complete Time: 13:08 vt Administered Medications: 12:19 Drug: [place] 10 mg-325 mg 1 tabs Route: PO; mg2 13:12 Follow up: Response: No adverse reaction; RASS: Alert and Calm (0) mg2 Disposition: 13:36 Co-signature as Attending Physician, Maxwell Marinelli MD. rn Disposition: 04/19/19 13:09 Discharged to Home. Impression: Periapical abscess without sinus. - Condition is Stable. - Discharge Instructions: Dental Abscess. - Prescriptions for Clindamycin HCl 300 mg Oral Capsule - take 1 capsule by ORAL route every 6 hours for 10 days; 40 capsule. Tramadol 50 mg Oral Tablet - take 1 tablet by ORAL route every 8 hours as needed; 12 tablet. - Medication Reconciliation Form, Thank You Letter, Antibiotic Education, Prescription Opioid Use form. - Follow up: Private Physician; When: 2 - 3 days; Reason: Recheck today's complaints. - Problem is new. - Symptoms are unchanged. Signatures: Dispatcher [employer] EDMS Talia Jasmine FNP [facility] Maxwell Marinelli MD MD rn Baxter, Heather, RN RN hb Gardose, Michele, RN RN mg2 Corrections: (The following items were deleted from the chart) 13:20 13:09 04/19/2019 13:09 Discharged to Home. Impression: Periapical abscess without mg2 sinus. Condition is Stable. Forms are Medication Reconciliation Form, Thank You Letter, Antibiotic Education, Prescription Opioid Use. Follow up: Private Physician; When: 2 - 3 days; Reason: Recheck today's complaints. Problem is new. Symptoms are unchanged. nh
--- NOTE | 2019-04-19 13:10 | ER ---
Nurse's Notes [facility] Name: Courtney Schuster Age: 38 yrs Sex: Female : 1980 Arrival Date: 04/19/2019 Time: 11:14 Bed 25 Private MD: Diagnosis: Periapical abscess without sinus Presentation: 04/19 11:40 Presenting complaint: Left lower molar pain that radiates to left ear x 2 days, N/V/D hb since this morning. Transition of care: patient was not received from another setting of care. Onset of symptoms was April 18, 2019. Risk Assessment: Do you want to hurt yourself or someone else? Patient reports no desire to harm self or others. Initial Sepsis Screen: Does the patient meet any 2 criteria? No. Patient's initial sepsis screen is negative. Does the patient have a suspected source of infection? No. Patient's initial sepsis screen is negative. Care prior to arrival: None. 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 - Social history:: Smoking status: Patient/guardian denies using tobacco. - Ebola Screening: : No symptoms or risks identified at this time. Screenin:22 Abuse screen: Denies threats or abuse. Denies injuries from another. Nutritional mg2 screening: No deficits noted. Tuberculosis screening: No symptoms or risk factors identified. Fall Risk None identified. Assessment: 12:19 General: Appears in no apparent distress. comfortable, Behavior is calm, cooperative. mg2 Pain: Complains of pain in teeth Pain radiates to left ear Pain currently is 8 out of 10 on a pain scale. Quality of pain is described as aching, Pain began gradually, 1 day ago. Is intermittent. Neuro: Level of Consciousness is awake, alert, obeys commands, Oriented to person, place, time, situation. Cardiovascular: Capillary refill < 3 seconds Patient's skin is warm and dry. Respiratory: Airway is patent Respiratory effort is even, unlabored, Respiratory pattern is regular, symmetrical. GI: No signs and/or symptoms were reported involving the gastrointestinal system. : No signs and/or symptoms were reported regarding the genitourinary system. EENT: Reports toothache since yesterday. . Derm: Skin is intact, is healthy with good turgor, Skin is pink, warm \T\ dry. normal. 13:19 Reassessment: Patient appears in no apparent distress at this time. Patient denies pain mg2 at this time. Patient states feeling better. Patient states symptoms have improved. Vital Signs: 11:41 BP 107 / 77; Pulse 73; Resp 16; Temp 98.3; Pulse Ox 100% on R/A; Weight 90.26 kg; hb Height 5 ft. 3 in. (160.02 cm); Pain 10/10; 13:19 BP 110 / 78; Pulse 71; Resp 18; Temp 98; Pulse Ox 100% on R/A; Pain 0/10; mg2 11:41 Body Mass Index 35.25 (90.26 kg, 160.02 cm) hb ED Course: 11:14 Patient arrived in ED. as 11:41 Triage completed. hb 11:41 Arm band placed on. hb 11:58 Talia Jasmine FNP is [facility]. nh 11:58 Maxwell Marinelli MD is Attending Physician. nh 12:14 Riley Tang, SIMEON is Primary Nurse. mg2 12:22 No provider procedures requiring assistance completed. Patient did not have IV access mg2 during this emergency room visit. 12:22 Initial lab(s) drawn, by me, sent to lab. Patient maintains SpO2 saturation greater jp3 than 95% on room air. 12:23 Patient has correct armband on for positive identification. Pulse ox on. NIBP on. Door mg2 closed. Warm blanket given. 12:23 Bed in low position. Call light in reach. Warm blanket given. Verbal reassurance given. jp3 Pulse ox on. NIBP on. 12:24 CMP Sent. jp3 12:24 CBC with Diff Sent. jp3 Administered Medications: 12:19 Drug: Codorus 10 mg-325 mg 1 tabs Route: PO; mg2 13:12 Follow up: Response: No adverse reaction; RASS: Alert and Calm (0) mg2 Outcome: 13:09 Discharge ordered by . nh 13:20 Discharged to home ambulatory, with family. mg2 13:20 Condition: good 13:20 Discharge instructions given to patient, family, Instructed on discharge instructions, follow up and referral plans. medication usage, Demonstrated understanding of instructions, follow-up care, medications, Prescriptions given X 2. 13:20 Patient left the ED. mg2 Signatures: Talia Jasmine, SOLE ASSESSOR SOLE ASSESSOR nc Sade Allen Heather, RN RN Riley Tang RN RN [facility] [place] [facility] Epps jp3
[2019-04-19 15:37] VITALS: O2SAT 100
[2019-04-19 15:39] VITALS: BP 110/78; TEMP 98
== END 2019-04-19 13:20 | disposition home or self-care (01) ==
LOC: ER 11:12
DX: K04.7 Periapical abscess without sinus (principal); Z88.0 Allergy status to penicillin; Z88.1 Allergy status to other antibiotic agents; Z88.5 Allergy status to narcotic agent
CPT/HCPCS: 36415; 80053; 85025; 99284

== ENCOUNTER 2020-03-30 13:42 | Emergency (ER) | payer SELFPAY ==
[2020-03-30] MEDS ORDERED: CETIRIZINE HCL 5 MG TABLET PO ONE (17:00)
[2020-03-30] MEDS ORDERED: FENTANYL CITR 100 MCG/2 ML ONE (17:05)
[2020-03-30] MEDS ORDERED: FAMOTIDINE 20 MG TAB ONE (17:06)
[2020-03-30] MEDS ORDERED: dexAMETHasone 4 MG TAB ONE (17:06)
[2020-03-30] MEDS ORDERED: DOXYCYCLINE 100 MG CAP PO ONE (17:06)
--- NOTE | 2020-03-30 17:50 | RAD REPORT ---
EXAM DESCRIPTION: US - Extremity Nonvascular Limited - 03/30/2020 5:42 pm CLINICAL HISTORY: Swelling right lower elbow COMPARISON: None FINDINGS: Diffuse edema is present within the subcutaneous tissues. An abscess/hematoma is not seen. IMPRESSION: Diffuse edema within the subcutaneous tissues of the lower elbow may indicate a cellulit is and should be correlated clinically
--- NOTE | 2020-03-30 18:02 | EDPHYS ---
Physician Documentation [facility] Name: Courtney Schuster Age: 39 yrs Sex: Female : 1980 Arrival Date: 03/30/2020 Time: 13:45 Bed 16 Private MD: ED Physician Fady Corey HPI: 03/30 16:50 This 39 yrs old Black Female presents to ER via Ambulatory with complaints of Arm snw Problem. 16:50 The patient or guardian complains of decreased range of motion, pain, that is acute. snw The complaints affect the left elbow. Context: The problem was sustained at an unknown location, resulted from unknown cause. Onset: The symptoms/episode began/occurred suddenly. Associated signs and symptoms: Pertinent positives: decreased range of motion, swelling, warmth, of the left elbow. Severity of symptoms: At their worst the symptoms were moderate, severe. The patient has not experienced similar symptoms in the past. The patient has not recently seen a physician. 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 - Social history:: Smoking status: Patient reports the use of cigarette tobacco products, smokes one-half pack cigarettes per day. ROS: 16:50 Constitutional: Negative for fever, chills, and weight loss, Eyes: Negative for injury, snw pain, redness, and discharge, ENT: Negative for injury, pain, and discharge, Neck: Negative for injury, pain, and swelling, Cardiovascular: Negative for chest pain, palpitations, and edema, Respiratory: Negative for shortness of breath, cough, wheezing, and pleuritic chest pain, Abdomen/GI: Negative for abdominal pain, nausea, vomiting, diarrhea, and constipation, Back: Negative for injury and pain, : Negative for injury, bleeding, discharge, and swelling, Neuro: Negative for headache, weakness, numbness, tingling, and seizure, Psych: Negative for depression, anxiety, suicide ideation, homicidal ideation, and hallucinations. 16:50 MS/extremity: Positive for decreased range of motion, erythema, pain, swelling, tenderness, warmth. 16:50 Skin: Positive for cellulitis, of the left elbow. Exam: 16:49 Constitutional: This is a well developed, well nourished patient who is awake, alert, snw and in no acute distress. Head/Face: Normocephalic, atraumatic. Eyes: Pupils equal round and reactive to light, extra-ocular motions intact. Lids and lashes normal. Conjunctiva and sclera are non-icteric and not injected. Cornea within normal limits. Periorbital areas with no swelling, redness, or edema. ENT: Nares patent. No nasal discharge, no septal abnormalities noted. Tympanic membranes are normal and external auditory canals are clear. Oropharynx with no redness, swelling, or masses, exudates, or evidence of obstruction, uvula midline. Mucous membranes moist. Neck: Trachea midline, no thyromegaly or masses palpated, and no cervical lymphadenopathy. Supple, full range of motion without nuchal rigidity, or vertebral point tenderness. No Meningismus. Chest/axilla: Normal chest wall appearance and motion. Nontender with no deformity. No lesions are appreciated. Cardiovascular: Regular rate and rhythm with a normal S1 and S2. No gallops, murmurs, or rubs. Normal PMI, no JVD. No pulse deficits. Respiratory: Lungs have equal breath sounds bilaterally, clear to auscultation and percussion. No rales, rhonchi or wheezes noted. No increased work of breathing, no retractions or nasal flaring. Abdomen/GI: Soft, non-tender, with normal bowel sounds. No distension or tympany. No guarding or rebound. No evidence of tenderness throughout. Back: No spinal tenderness. No costovertebral tenderness. Full range of motion. Neuro: Awake and alert, GCS 15, oriented to person, place, time, and situation. Cranial nerves II-XII grossly intact. Motor strength 5/5 in all extremities. Sensory grossly intact. Cerebellar exam normal. Normal gait. Psych: Awake, alert, with orientation to person, place and time. Behavior, mood, and affect are within normal limits. 16:49 Musculoskeletal/extremity: ROM: limited active range of motion due to pain, limited passive range of motion due to pain, Circulation is intact in all extremities. Sensation intact. Compartment Syndrome exam of affected extremity: is normal. 16:49 Skin: Appearance: normal except for affected area, cellulitis, that is moderate, well demarcated, on the left elbow, induration, that is moderate is noted, located on the left elbow. Vital Signs: 14:19 BP 136 / 86; Pulse 67; Resp 16 S; Temp 97.2(TE); Pulse Ox 100% on R/A; Weight 97.52 kg; ca1 Height 5 ft. 4 in. (162.56 cm) (R); Pain 7/10; 17:07 BP 146 / 95; Pulse 64; Resp 17; Pulse Ox 100% on R/A; tw2 18:11 BP 137 / 87; Pulse 57; Resp 17; Pulse Ox 100% on R/A; tw2 14:19 Body Mass Index 36.90 (97.52 kg, 162.56 cm) ca1 MDM: 16:34 Patient medically screened. snw 18:01 Data reviewed: vital signs, nurses notes. Data interpreted: Pulse oximetry: on room air snw is 100 %. Interpretation: normal. Counseling: I had a detailed discussion with the patient and/or guardian regarding: the historical points, exam findings, and any diagnostic results supporting the discharge/admit diagnosis, the presence of at least one elevated blood pressure reading (>120/80) during this emergency department visit, radiology results, the need for outpatient follow up, to return to the emergency department if symptoms worsen or persist or if there are any questions or concerns that arise at home. Response to treatment: the patient's symptoms have markedly improved after treatment. Special discussion: Based on the history and exam findings, there is no indication for further emergent testing or inpatient evaluation. I discussed with the patient/guardian the need to see the primary care provider for further evaluation of the symptoms. 03/30 16:45 Order name: Extrmt Nonvasular Limited: left medial condyle for abscess; Complete snw Time: 17:56 Administered Medications: 17:00 Drug: fentaNYL (PF) 50 mcg {Note: RASS 0.} Route: IM; Site: right deltoid; tw2 18:13 Follow up: Response: No adverse reaction; Pain is decreased; RASS: Alert and Calm (0) tw2 17:02 Drug: Doxycycline 100 mg Route: PO; tw2 18:13 Follow up: Response: No adverse reaction tw2 17:02 Drug: Pepcid 20 mg Route: PO; tw2 18:13 Follow up: Response: No adverse reaction tw2 17:02 Drug: Decadron 8 mg Route: PO; tw2 18:13 Follow up: Response: No adverse reaction tw2 17:07 Drug: ZyrTEC - Cetirizine 10 mg Route: PO; tw2 18:13 Follow up: Response: No adverse reaction tw2 Disposition: 03/31 07:00 Co-signature as Attending Physician, Fady Corey MD I agree with the assessment and [facility] plan of care. Disposition: 03/30/20 18:01 Discharged to Home. Impression: Cellulitis of left upper limb. - Condition is Stable. - Discharge Instructions: Cellulitis, Adult, Heat Therapy. - Prescriptions for Zyrtec 10 mg Oral Tablet - take 1 tablet by ORAL route once daily As needed; 20 tablet. Doxycycline Hyclate 100 mg Oral Tablet - take 1 tablet by ORAL route every 12 hours; 20 tablet. Prednisone 20 mg Oral Tablet - take 2 tablet by ORAL route once daily for 5 days; 10 tablet. Pepcid 20 mg Oral Tablet - take 1 tablet by ORAL route once daily; 20 tablet. - Medication Reconciliation Form, Thank You Letter, Antibiotic Education, Prescription Opioid Use, Work release form form. - Follow up: Emergency Department; When: As needed; Reason: Worsening of condition. Follow up: Private Physician; When: 2 - 3 days; Reason: Recheck today's complaints, Continuance of care, Re-evaluation by your physician. Signatures: Dispatcher [employer] Fady Gonzáles MD MD cha Waters, Shelly, CERTIFIED VETERINARY TECHNICIAN-C CERTIFIED VETERINARY TECHNICIAN-Reneew Nena rTiana, RN RN tw2 Charlene Anaya RN RN ca1 Corrections: (The following items were deleted from the chart) 03/30 18:22 18:01 03/30/2020 18:01 Discharged to Home. Impression: Cellulitis of left upper limb. tw2 Condition is Stable. Forms are Work release form, Medication Reconciliation Form, Thank You Letter, Antibiotic Education, Prescription Opioid Use. Follow up: Emergency Department; When: As needed; Reason: Worsening of condition. Follow up: Private Physician; When: 2 - 3 days; Reason: Recheck today's complaints, Continuance of care, Re-evaluation by your physician. snw
--- NOTE | 2020-03-30 18:02 | ER ---
Nurse's Notes [facility] Name: Courtney Schuster Age: 39 yrs Sex: Female : 1980 Arrival Date: 03/30/2020 Time: 13:45 Bed 16 Private MD: Diagnosis: Cellulitis of left upper limb Presentation: 03/30 14:19 Chief complaint: Patient states: Pain on R side of hand and L inner elbow, started ca1 yesterday. Denies injury. Coronavirus screen: Client denies travel out of the [place] in the last 14 days. At this time, the client does not indicate any symptoms associated with coronavirus-19. Ebola Screen: Patient negative for fever greater than or equal to 101.5 degrees Fahrenheit, and additional compatible Ebola Virus Disease symptoms Patient denies exposure to infectious person. Patient denies travel to an Ebola-affected area in the 21 days before illness onset. No symptoms or risks identified at this time. Initial Sepsis Screen: Does the patient meet any 2 criteria? No. Patient's initial sepsis screen is negative. Does the patient have a suspected source of infection? No. Patient's initial sepsis screen is negative. Risk Assessment: Do you want to hurt yourself or someone else? Patient reports no desire to harm self or others. Onset of symptoms was March 30, 2020. 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 - Social history:: Smoking status: Patient reports the use of cigarette tobacco products, smokes one-half pack cigarettes per day. Screenin:08 Abuse screen: Denies threats or abuse. Nutritional screening: No deficits noted. tw2 Tuberculosis screening: No symptoms or risk factors identified. Fall Risk None identified. Assessment: 16:33 General: Appears in no apparent distress. obese, well groomed, Behavior is calm, tw2 cooperative, appropriate for age. Pain: Complains of pain in left arm. Neuro: Level of Consciousness is awake, alert, obeys commands, Oriented to person, place, time, situation. Cardiovascular: Heart tones S1 S2 Patient's skin is warm and dry. Respiratory: Airway is patent Respiratory effort is even, unlabored, Respiratory pattern is regular, symmetrical, Breath sounds are clear bilaterally. GI: No signs and/or symptoms were reported involving the gastrointestinal system. : No signs and/or symptoms were reported regarding the genitourinary system. EENT: No signs and/or symptoms were reported regarding the EENT system. Derm: Skin is intact, is healthy with good turgor. Derm: Reports increased pain and redness with warmth noted to LEFT arm posterior side. Musculoskeletal: Circulation, motion, and sensation intact. Range of motion: intact in all extremities. 17:07 Reassessment: Patient appears in no apparent distress at this time. No changes from tw2 previously documented assessment. Patient and/or family updated on plan of care and expected duration. Pain level reassessed. Patient is alert, oriented x 3, equal unlabored respirations, skin warm/dry/pink. 18:11 Reassessment: Patient appears in no apparent distress at this time. No changes from tw2 previously documented assessment. Patient and/or family updated on plan of care and expected duration. Pain level reassessed. Patient is alert, oriented x 3, equal unlabored respirations, skin warm/dry/pink. 18:22 Reassessment: Patient appears in no apparent distress at this time. No changes from tw2 previously documented assessment. Patient and/or family updated on plan of care and expected duration. Pain level reassessed. Patient is alert, oriented x 3, equal unlabored respirations, skin warm/dry/pink. Vital Signs: 14:19 BP 136 / 86; Pulse 67; Resp 16 S; Temp 97.2(TE); Pulse Ox 100% on R/A; Weight 97.52 kg; ca1 Height 5 ft. 4 in. (162.56 cm) (R); Pain 7/10; 17:07 BP 146 / 95; Pulse 64; Resp 17; Pulse Ox 100% on R/A; tw2 18:11 BP 137 / 87; Pulse 57; Resp 17; Pulse Ox 100% on R/A; tw2 14:19 Body Mass Index 36.90 (97.52 kg, 162.56 cm) ca1 ED Course: 13:45 Patient arrived in ED. mr 14:20 Triage completed. ca1 14:21 Arm band placed on right wrist. ca1 16:33 Demetra Scanlon FNP-C is [facility]. snw 16:33 Fady Corey MD is Attending Physician. snw 16:33 Bed in low position. Call light in reach. Side rails up X 1. Pulse ox on. NIBP on. Warm tw2 blanket given. 16:35 Nena Triana, RN is Primary Nurse. tw2 17:42 US Extrmty Nonvasular Limited: left medial condyle for abscess In Process Unspecified. EDMS 18:22 No provider procedures requiring assistance completed. Patient did not have IV access tw2 during this emergency room visit. Administered Medications: 17:00 Drug: fentaNYL (PF) 50 mcg {Note: RASS 0.} Route: IM; Site: right deltoid; tw2 18:13 Follow up: Response: No adverse reaction; Pain is decreased; RASS: Alert and Calm (0) tw2 17:02 Drug: Doxycycline 100 mg Route: PO; tw2 18:13 Follow up: Response: No adverse reaction tw2 17:02 Drug: Pepcid 20 mg Route: PO; tw2 18:13 Follow up: Response: No adverse reaction tw2 17:02 Drug: Decadron 8 mg Route: PO; tw2 18:13 Follow up: Response: No adverse reaction tw2 17:07 Drug: ZyrTEC - Cetirizine 10 mg Route: PO; tw2 18:13 Follow up: Response: No adverse reaction tw2 Outcome: 18:01 Discharge ordered by . snw 18:22 Discharged to home ambulatory. tw2 18:22 Condition: stable 18:22 Discharge instructions given to patient, Instructed on discharge instructions, follow up and referral plans. medication usage, Demonstrated understanding of instructions, follow-up care, medications, Prescriptions given X 4. 18:22 Patient left the ED. tw2 Signatures: Dispatcher [employer] EDMS Demetra Scanlon FNP-C LIAISON ENGINEER-Csnw Britney Mccormick Nena Triana, RN RN tw2 Charlene Anaya RN RN ca1
[2020-03-30 20:25] VITALS: TEMP 97.2; O2SAT 100
[2020-03-30 20:29] VITALS: BP 137/87
== END 2020-03-30 18:22 | disposition home or self-care (01) ==
LOC: ER 13:42
DX: L03.114 Cellulitis of left upper limb (principal); F17.210 Nicotine dependence, cigarettes, uncomplicated; Z88.0 Allergy status to penicillin; Z88.1 Allergy status to other antibiotic agents; Z88.5 Allergy status to narcotic agent
CPT/HCPCS: 76882; 96372; 99284; J3010; J8540

== ENCOUNTER 2020-04-19 10:33 | Emergency (ER) | payer SELFPAY ==
[2020-04-19] MEDS ORDERED: TETRACAINE HCL 0.5% 4ML OPTH ONE (11:13)
[2020-04-19] MEDS ORDERED: FLUORESCEIN SODIUM 1 MG/WRAP ONE (11:13)
--- NOTE | 2020-04-19 11:28 | ER ---
Nurse's Notes [facility] Name: Courtney Schuster Age: 39 yrs Sex: Female : 1980 Arrival Date: 04/19/2020 Time: 10:36 Bed 18 Private MD: Diagnosis: Uveitis Presentation: 04/19 10:52 Chief complaint: Patient states: redness and pain to R eye that began this morning. ss Coronavirus screen: Client denies travel out of the [place] in the last 14 days. Ebola Screen: Patient denies exposure to infectious person. Patient denies travel to an Ebola-affected area in the 21 days before illness onset. Initial Sepsis Screen: Does the patient meet any 2 criteria? No. Patient's initial sepsis screen is negative. Does the patient have a suspected source of infection? No. Patient's initial sepsis screen is negative. Risk Assessment: Do you want to hurt yourself or someone else? Patient reports no desire to harm self or others. 10:52 Method Of Arrival: Ambulatory ss 10:52 Acuity: LEIF 4 ss 11:40 Onset of symptoms was April 19, 2020. 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 - Social history:: Smoking status: Patient denies any tobacco usage or history of. Screenin:39 Abuse screen: Denies threats or abuse. Nutritional screening: No deficits noted. ll1 Tuberculosis screening: No symptoms or risk factors identified. Fall Risk None identified. Total Mckeon Fall Scale indicates No Risk (0-24 pts). Assessment: 11:00 General: Appears uncomfortable, Behavior is calm, cooperative, appropriate for age. ll1 Pain: Complains of pain in R eye Quality of pain is described as burning, aching. Neuro: No deficits noted. Cardiovascular: No deficits noted. Respiratory: No deficits noted. GI: No deficits noted. EENT: Eyes are tearing on outer aspect of conjuctiva of right eye, iris of right eye and inner aspect of conjuctiva of right eye Sclera/Cornea are reddened in outer aspect of conjuctiva of right eye, iris of right eye and inner aspect of conjuctiva of right eye Reports pain in right eye. Vital Signs: 10:52 BP 121 / 84; Pulse 60; Resp 16; Temp 98.1(TE); Pulse Ox 100% on R/A; Weight 88.45 kg; Height 5 ft. 4 in. (162.56 cm); Pain 7/10; 10:52 Body Mass Index 33.47 (88.45 kg, 162.56 cm) ED Course: 10:36 Patient arrived in ED. ds1 10:42 Shakir Ni PA is PHCP. jr8 10:42 Mawxell Marinelli MD is Attending Physician. jr8 10:47 Anthony Hidalgo RN is Primary Nurse. ll1 10:53 Triage completed. 10:54 Arm band placed on right wrist. 11:23 Carlos Alcantar MD is Referral Physician. jr8 11:39 Patient has correct armband on for positive identification. Bed in low position. Call ll1 light in reach. Side rails up X 1. Pulse ox on. NIBP on. 11:39 No provider procedures requiring assistance completed. Patient did not have IV access ll1 during this emergency room visit. Administered Medications: 11:12 Drug: Tetracaine Drops 0.5 % 1 drops Route: Ophthalmic; Site: both eyes; ll1 11:40 Follow up: Response: No adverse reaction; RASS: Alert and Calm (0) ll1 11:40 Follow up: Response: No adverse reaction; RASS: Alert and Calm (0) 1 11:12 Drug: Fluorescein Strip 1 strip Route: Ophthalmic; Site: both eyes; ll1 11:40 Follow up: Response: No adverse reaction; RASS: Alert and Calm (0) ll1 Outcome: 11:27 Discharge ordered by . jr8 11:39 Discharged to home ambulatory. ll1 11:39 Condition: stable 11:39 Discharge instructions given to patient, Instructed on discharge instructions, follow up and referral plans. medication usage, Demonstrated understanding of instructions, follow-up care, medications, Prescriptions given X 2. 11:41 Patient left the ED. ll1 Signatures: Nataliya Sin ds1 Gisela Hugo RN RN Shakir Ni PA PA jr8 Anthony Hidalgo RN RN ll1
--- NOTE | 2020-04-19 11:28 | EDPHYS ---
Physician Documentation [facility] Name: Courtney Schuster Age: 39 yrs Sex: Female : 1980 Arrival Date: 04/19/2020 Time: 10:36 Bed 18 Private MD: ED Physician Maxwell Marinelli HPI: 04/19 12:47 This 39 yrs old Black Female presents to ER via Ambulatory with complaints of Redness jr8 of Eye. 12:47 The patient is experiencing pain, redness, tearing, The patient sustained None. to the jr8 right eye, caused by an unknown mechanism. Onset: The symptoms/episode began/occurred acutely, yesterday. Duration: the symptoms are continuous. Aggravated by light, Alleviated by nothing. Associated signs and symptoms: Pertinent positives: None. Patient wears soft contacts. Severity of symptoms: At their worst the symptoms were moderate in the emergency department the symptoms are unchanged. The patient has not experienced similar symptoms in the past. The patient has not recently seen a physician. denies sleeping in contacts or FB sensation . 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 - Social history:: Smoking status: Patient denies any tobacco usage or history of. ROS: 12:47 ENT: Negative for injury, pain, and discharge, Neck: Negative for injury, pain, and jr8 swelling, Cardiovascular: Negative for chest pain, palpitations, and edema, Respiratory: Negative for shortness of breath, cough, wheezing, and pleuritic chest pain, Abdomen/GI: Negative for abdominal pain, nausea, vomiting, diarrhea, and constipation, Back: Negative for injury and pain, MS/Extremity: Negative for injury and deformity, Skin: Negative for injury, rash, and discoloration, Neuro: Negative for headache, weakness, numbness, tingling, and seizure. 12:47 Eyes: Positive for pain, photophobia, redness, tearing, of the right eye. Exam: 12:47 Visual Acuity: Visual acuity is within normal limits. jr8 12:47 Constitutional: This is a well developed, well nourished patient who is awake, alert, and in no acute distress. ENT: Nares patent. No nasal discharge, no septal abnormalities noted. Tympanic membranes are normal and external auditory canals are clear. Oropharynx with no redness, swelling, or masses, exudates, or evidence of obstruction, uvula midline. Mucous membranes moist. Cardiovascular: Regular rate and rhythm with a normal S1 and S2. No gallops, murmurs, or rubs. Normal PMI, no JVD. No pulse deficits. Respiratory: Lungs have equal breath sounds bilaterally, clear to auscultation and percussion. No rales, rhonchi or wheezes noted. No increased work of breathing, no retractions or nasal flaring. Skin: Warm, dry with normal turgor. Normal color with no rashes, no lesions, and no evidence of cellulitis. Neuro: Awake and alert, GCS 15, oriented to person, place, time, and situation. Cranial nerves II-XII grossly intact. Motor strength 5/5 in all extremities. Sensory grossly intact. Cerebellar exam normal. Normal gait. 12:47 Eyes: Periorbital structures: appear normal, Pupils: equal, round, and reactive to light and accomodation, Extraocular movements: intact throughout, Conjunctiva: injected, in the right eye, tearing noted, in right eye, Corneas: abrasion, is not appreciated, foreign body, is not appreciated, a fluorescein strip employed to appreciate the findings, Sclera: no appreciated abnormality, Anterior chamber: normal, Lids and lashes: appear normal, Examination of the other eye reveals no obvious gross abnormality, slightly hyperemic around iris . Vital Signs: 10:52 BP 121 / 84; Pulse 60; Resp 16; Temp 98.1(TE); Pulse Ox 100% on R/A; Weight 88.45 kg; ss Height 5 ft. 4 in. (162.56 cm); Pain 7/10; 10:52 Body Mass Index 33.47 (88.45 kg, 162.56 cm) ss MDM: 10:42 Patient medically screened. jr8 11:23 Data reviewed: vital signs, nurses notes, and as a result, I will discharge patient. jr8 Data interpreted: Pulse oximetry: on room air is 100 %. Interpretation: normal. Counseling: I had a detailed discussion with the patient and/or guardian regarding: the historical points, exam findings, and any diagnostic results supporting the discharge/admit diagnosis, the need for outpatient follow up, an opthalmologist, to return to the emergency department if symptoms worsen or persist or if there are any questions or concerns that arise at home. Administered Medications: 11:12 Drug: Tetracaine Drops 0.5 % 1 drops Route: Ophthalmic; Site: both eyes; ll1 11:40 Follow up: Response: No adverse reaction; RASS: Alert and Calm (0) ll1 11:40 Follow up: Response: No adverse reaction; RASS: Alert and Calm (0) ll1 11:12 Drug: Fluorescein Strip 1 strip Route: Ophthalmic; Site: both eyes; ll1 11:40 Follow up: Response: No adverse reaction; RASS: Alert and Calm (0) ll1 Disposition: 13:23 Co-signature as Attending Physician, Maxwell Marinelli MD. rn Disposition: 04/19/20 11:27 Discharged to Home. Impression: Uveitis. - Condition is Stable. - Discharge Instructions: Uveitis. - Prescriptions for Gentamicin 0.3 % Ophthalmic Drops - instill 1 drop by OPHTHALMIC route every 4 hours for 7 days; 1 bottle. Prednisone 20 mg Oral Tablet - take 2 tablet by ORAL route once daily for 5 days; 10 tablet. - Medication Reconciliation Form, Thank You Letter, Antibiotic Education, Prescription Opioid Use, Work release form form. - Follow up: Carlos Alcantar MD; When: 2 - 3 days; Reason: Recheck today's complaints, Continuance of care, Re-evaluation by your physician. - Problem is new. - Symptoms have improved. Signatures: Maxwell Marinelli MD MD rn Smirch, Shelby, RN RN ss Roszak, Josh, PA PA jr8 Anthony Hidalgo RN RN ll1 Corrections: (The following items were deleted from the chart) 11:41 11:27 04/19/2020 11:27 Discharged to Home. Impression: Uveitis. Condition is Stable. ll1 Forms are Medication Reconciliation Form, Thank You Letter, Antibiotic Education, Prescription Opioid Use. Follow up: Carlos Alcantar; When: 2 - 3 days; Reason: Recheck today's complaints, Continuance of care, Re-evaluation by your physician. Problem is new. Symptoms have improved. jr8
[2020-04-19 11:57] VITALS: BP 121/84; TEMP 98.1; O2SAT 100
== END 2020-04-19 11:41 | disposition home or self-care (01) ==
LOC: ER 10:33
DX: H20.9 Unspecified iridocyclitis (principal); Z88.0 Allergy status to penicillin; Z88.1 Allergy status to other antibiotic agents; Z88.5 Allergy status to narcotic agent
CPT/HCPCS: 99283

== ENCOUNTER 2020-06-13 10:23 | Emergency (ER) | payer SELFPAY ==
--- NOTE | 2020-06-13 10:47 | ER ---
Nurse's Notes [facility] Name: Courtney Schuster Age: 40 yrs Sex: Female : 1980 Arrival Date: 06/13/2020 Time: 10:25 Bed Waiting Private MD: Diagnosis: Cellulitis of right upper limb;Cellulitis of left upper limb Presentation: 06/13 10:40 Chief complaint: Patient states: I started swelling in spots on both arms and my back. iw Coronavirus screen: At this time, unable to obtain information related to travel outside the [place] At this time, the client does not indicate any symptoms associated with coronavirus-19. Ebola Screen: Patient negative for fever greater than or equal to 101.5 degrees Fahrenheit, and additional compatible Ebola Virus Disease symptoms Patient denies exposure to infectious person. Patient denies travel to an Ebola-affected area in the 21 days before illness onset. No symptoms or risks identified at this time. Initial Sepsis Screen: Does the patient meet any 2 criteria? No. Patient's initial sepsis screen is negative. Does the patient have a suspected source of infection? No. Patient's initial sepsis screen is negative. Risk Assessment: Do you want to hurt yourself or someone else? Patient reports no desire to harm self or others. Onset of symptoms was June 12, 2020. 10:40 Acuity: LEIF 5 iw 10:40 Method Of Arrival: Ambulatory iw Triage Assessment: 10:42 General: Appears in no apparent distress. comfortable, Behavior is calm, cooperative. iw Pain: Pain currently is 6 out of 10 on a pain scale. 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 - Social history:: Smoking status: Patient/guardian denies using tobacco. Screenin:55 Abuse screen: Denies threats or abuse. Denies injuries from another. Nutritional iw screening: No deficits noted. Tuberculosis screening: No symptoms or risk factors identified. Fall Risk None identified. Assessment: 10:45 General: Appears in no apparent distress. Behavior is calm, cooperative. Pain: Denies iw pain. Neuro: Level of Consciousness is awake, alert, obeys commands, Oriented to person, place, time, situation, Moves all extremities. Cardiovascular: Patient's skin is warm and dry. Respiratory: Respiratory effort is even, unlabored, Respiratory pattern is regular. Derm: Skin is intact, is healthy with good turgor. Musculoskeletal: Range of motion: intact in all extremities. Vital Signs: 10:40 BP 122 / 76; Pulse 76; Resp 18; Temp 98.2; Pulse Ox 99% ; Weight 88.45 kg; Height 5 ft. iw 4 in. (162.56 cm); Pain 6/10; 10:40 Body Mass Index 33.47 (88.45 kg, 162.56 cm) iw ED Course: 10:25 Patient arrived in ED. ag5 10:37 Lori Herman FNP-C is [facility]. kb 10:37 Maxwell Marinelli MD is Attending Physician. kb 10:42 Triage completed. iw 10:43 Arm band placed on right wrist. iw 10:45 Patient has correct armband on for positive identification. iw 10:45 No provider procedures requiring assistance completed. Patient did not have IV access iw during this emergency room visit. 10:46 Susy Bocanegra, RN is Primary Nurse. iw Administered Medications: No medications were administered Outcome: 10:47 Discharge ordered by . kb 10:55 Discharged to home ambulatory. iw 10:55 Condition: good 10:55 Discharge instructions given to patient, Instructed on discharge instructions, follow up and referral plans. medication usage, Demonstrated understanding of instructions, follow-up care, medications, Prescriptions given X 1. 10:56 Patient left the ED. iw Signatures: Lori Herman FNP-C FNP-Susy Trejo, RN RN iw Claudia Miller ag5
--- NOTE | 2020-06-13 10:48 | EDPHYS ---
Physician Documentation [facility] Name: Courtney Schuster Age: 40 yrs Sex: Female : 1980 Arrival Date: 06/13/2020 Time: 10:25 Bed Waiting Private MD: ED Physician Maxwell Marinelli HPI: 06/13 11:22 This 40 yrs old Black Female presents to ER via Ambulatory with complaints of Rash. kb 11:22 The patient has not experienced similar symptoms in the past. The patient has not kb recently seen a physician. 11:22 the patient presents with a swollen area of the palmar aspect of right forearm and left kb bicep and right scapular area and dorsal aspect of left forearm. Description: erythematous, hot, swollen. Onset: The symptoms/episode began/occurred yesterday. Possible cause(s): unknown. Associated signs and symptoms: Pertinent positives: erythema, swelling, Pertinent negatives: discharge, drainage, foreign body sensation, fever, headache, nausea, shortness of breath, vomiting. Modifying factors: the symptoms are alleviated by nothing, the symptoms are aggravated by nothing. Severity of symptoms: At their worst the symptoms were mild, in the emergency department the symptoms are unchanged. Small areas of redness, swelling and warmth to bilateral forearms and right upper back. Softball sized area of redness, swelling and warmth to left upper arm. 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 - Social history:: Smoking status: Patient/guardian denies using tobacco. ROS: 11:21 Constitutional: Negative for fever, chills, and weight loss, Cardiovascular: Negative kb for chest pain, palpitations, and edema, Respiratory: Negative for shortness of breath, cough, wheezing, and pleuritic chest pain, Abdomen/GI: Negative for abdominal pain, nausea, vomiting, diarrhea, and constipation, MS/Extremity: Negative for injury and deformity, Neuro: Negative for headache, weakness, numbness, tingling, and seizure. 11:21 Skin: Positive for erythema, swelling, of the right scapular area, palmar aspect of right forearm, left bicep and dorsal aspect of left forearm. Exam: 11:21 Constitutional: This is a well developed, well nourished patient who is awake, alert, kb and in no acute distress. Head/Face: Normocephalic, atraumatic. Chest/axilla: Normal chest wall appearance and motion. Nontender with no deformity. No lesions are appreciated. Cardiovascular: Regular rate and rhythm with a normal S1 and S2. No gallops, murmurs, or rubs. Normal PMI, no JVD. No pulse deficits. Respiratory: Lungs have equal breath sounds bilaterally, clear to auscultation and percussion. No rales, rhonchi or wheezes noted. No increased work of breathing, no retractions or nasal flaring. Abdomen/GI: Soft, non-tender, with normal bowel sounds. No distension or tympany. No guarding or rebound. No evidence of tenderness throughout. MS/ Extremity: Pulses equal, no cyanosis. Neurovascular intact. Full, normal range of motion. Neuro: Awake and alert, GCS 15, oriented to person, place, time, and situation. Cranial nerves II-XII grossly intact. Motor strength 5/5 in all extremities. Sensory grossly intact. Cerebellar exam normal. Normal gait. 11:21 Skin: cellulitis, that is mild, on the right arm, left bicep and dorsal aspect of left forearm and palmar aspect of right forearm and right scapular area. Vital Signs: 10:40 BP 122 / 76; Pulse 76; Resp 18; Temp 98.2; Pulse Ox 99% ; Weight 88.45 kg; Height 5 ft. iw 4 in. (162.56 cm); Pain 6/10; 10:40 Body Mass Index 33.47 (88.45 kg, 162.56 cm) iw MDM: 10:37 Patient medically screened. kb 10:46 Data reviewed: vital signs, nurses notes. Data interpreted: Pulse oximetry: on room air kb is 99 %. Interpretation: normal. Counseling: I had a detailed discussion with the patient and/or guardian regarding: the historical points, exam findings, and any diagnostic results supporting the discharge/admit diagnosis, the need for outpatient follow up, a family practitioner, to return to the emergency department if symptoms worsen or persist or if there are any questions or concerns that arise at home. Administered Medications: No medications were administered Disposition: 16:03 Co-signature as Attending Physician, Maxwell Marinelli MD. rn Disposition: 06/13/20 10:47 Discharged to Home. Impression: Cellulitis of right upper limb, Cellulitis of left upper limb. - Condition is Stable. - Discharge Instructions: Cellulitis, Adult, [id number]. - Prescriptions for Bactrim DS 800- 160 mg Oral Tablet - take 1 tablet by ORAL route every 12 hours for 10 days; 20 tablet. - Medication Reconciliation Form, Thank You Letter, Antibiotic Education, Prescription Opioid Use, Work release form form. - Follow up: Emergency Department; When: As needed; Reason: Worsening of condition. Follow up: Private Physician; When: 2 - 3 days; Reason: Recheck today's complaints, Continuance of care, Re-evaluation by your physician. Signatures: Lori Herman, CARMEN-C FARM MECHANIC-Susy Trejo, RN RN iw Maxwell Marinelli MD MD rn first assistant: (The following items were deleted from the chart) 10:56 10:47 06/13/2020 10:47 Discharged to Home. Impression: Cellulitis of right upper limb; iw Cellulitis of left upper limb. Condition is Stable. Forms are Medication Reconciliation Form, Thank You Letter, Antibiotic Education, Prescription Opioid Use. Follow up: Emergency Department; When: As needed; Reason: Worsening of condition. Follow up: Private Physician; When: 2 - 3 days; Reason: Recheck today's complaints, Continuance of care, Re-evaluation by your physician. kb
[2020-06-13 11:02] VITALS: BP 122/76; TEMP 98.2; O2SAT 99
[2020-06-13] MEDS ORDERED: SMZ./TMP. 800/160 MG TABLET ONE (11:06)
== END 2020-06-13 10:56 | disposition home or self-care (01) ==
LOC: ER 10:23
DX: L03.114 Cellulitis of left upper limb (principal); L03.113 Cellulitis of right upper limb; Z88.0 Allergy status to penicillin; Z88.1 Allergy status to other antibiotic agents; Z88.5 Allergy status to narcotic agent
CPT/HCPCS: 99282

== ENCOUNTER 2021-01-08 13:08 | Emergency (ER) | payer SELFPAY ==
--- NOTE | 2021-01-08 14:16 | RAD REPORT ---
EXAM DESCRIPTION: CT - Head Brain Wo Cont - 01/08/2021 2:05 pm CLINICAL HISTORY: Syncope COMPARISON: None. TECHNIQUE: Computed axial tomography of the head was obtained. IV contrast was not requested. All CT scans are performed using dose optimization technique as appropriate and may include automated exposure control or mA/KV adjustment according to patient size. FINDINGS: An intracranial bleed is not seen . The ventricles are normal in caliber. No extra-axial fluid collection is noted. Fluid within the sinuses/ mastoids is not seen. IMPRESSION: No acute intracranial abnormality is seen. If patient's symptoms persist MRI of the bra in would be recommended.
[2021-01-08 14:24] LABS: Urine Blood Trace-lysed (Negative); Urine Glucose Negative (Negative); Urine Protein Negative (Negative)
--- NOTE | 2021-01-08 14:56 | RAD REPORT ---
EXAM DESCRIPTION: Nannette Single View01/08/2021 2:36 pm CLINICAL HISTORY: Syncope COMPARISON: 2009 FINDINGS: The lungs appear clear of acute infiltrate. The heart is normal size IMPRESSION: No acute abnormalities displayed
[2021-01-08 14:59] LABS: Absolute Lymphocytes (CBC) 3.1 K/uL (0.7-4.9); Basophils % 1.3 % (0-1.3); Hematocrit 37.2 % (36.0-45.0); Lymphocytes % 51.5 % (15.3-44.8); MPV 9.5 fL (7.6-11.3); RBC Red Blood Cell Count 4.95 M/uL (3.86-4.86)
[2021-01-08 15:13] LABS: ALT/SGPT 24 U/L (12-78); AST/SGOT 18 U/L (15-37); Albumin 3.6 g/dL (3.4-5.0); Alkaline Phosphatase 56 U/L (45-117); BUN Blood Urea Nitrogen 7 mg/dL (7-18); Bicarbonate 24 mmol/L (21-32); Bilirubin Direct < 0.1 mg/dL (0-0.2); Bilirubin Total 0.3 mg/dL (0.2-1.0); Glucose Level 89 mg/dL (74-106); Magnesium 1.9 mg/dL (1.8-2.4); NT PRO-BNP 55 pg/mL (<125); Potassium 3.9 mmol/L (3.5-5.1); Protein, Total 7.4 g/dL (6.4-8.2); Sodium Level 140 mmol/L (136-145); Troponin (Emerg Dept Use Only) < 0.02 ng/mL (0.0-0.045)
[2021-01-08 15:32] LABS: Protime INR 1.13
--- NOTE | 2021-01-08 18:58 | ER ---
Nurse's Notes [facility] Name: Courtney Schuster Age: 40 yrs Sex: Female : 1980 Arrival Date: 01/08/2021 Time: 13:15 Bed 30 Private MD: Diagnosis: Syncope and collapse;Headache Presentation: 01/08 13:18 Chief complaint: EMS states: witnessed syncopal episode at work, pt states she felt iw funny and everything was going fast and she got shaky before she passed out. Pt has had sharp pain in the back of her head and pain between her eyes for past couple days , pt reports she feels ok except her head is still hurting. Coronavirus screen: Client presents with at least one sign or symptom that may indicate coronavirus-19. Ebola Screen: Patient negative for fever greater than or equal to 101.5 degrees Fahrenheit, and additional compatible Ebola Virus Disease symptoms Patient denies exposure to infectious person. Patient denies travel to an Ebola-affected area in the 21 days before illness onset. No symptoms or risks identified at this time. Initial Sepsis Screen: Does the patient meet any 2 criteria? No. Patient's initial sepsis screen is negative. Does the patient have a suspected source of infection? No. Patient's initial sepsis screen is negative. Risk Assessment: Do you want to hurt yourself or someone else? Patient reports no desire to harm self or others. Onset of symptoms was January 08, 2021. 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 - Social history:: Smoking status: Patient/guardian denies using tobacco, the patient reports quitting approximately 1 years ago. Screenin:42 Abuse screen: Denies threats or abuse. Denies injuries from another. Nutritional zb screening: No deficits noted. Tuberculosis screening: No symptoms or risk factors identified. Fall Risk Fall in past 12 months (25 points). No secondary diagnosis (0 pts). IV access (20 points). Ambulatory Aid- None/Bed Rest/Nurse Assist (0 pts). Gait- Normal/Bed Rest/Wheelchair (0 pts) Mental Status- Oriented to own ability (0 pts). Total Mckeon Fall Scale indicates Low Risk Score (25-44 pts). Fall prevention measures have been instituted. Side Rails Up X 2 Placed close to Nursing Station Frequent Obs/Assesments occuring Family Present and informed to notify staff if they need to leave bedside As available Patient and Family Educated on Fall Prevention Program and strategies. Assessment: 14:00 General: Appears in no apparent distress. uncomfortable, Behavior is calm, cooperative, zb appropriate for age. Pain: Complains of pain in top of head and forehead Pain does not radiate. Pain currently is 7 out of 10 on a pain scale. Quality of pain is described as aching. Neuro: Level of Consciousness is awake, alert, obeys commands, Oriented to person, place, time, situation, Learn To Swim Instructor are equal bilaterally Moves all extremities. Full function Facial symmetry appears normal. Cardiovascular: Heart tones S1 S2 present Capillary refill < 3 seconds Patient's skin is warm and dry. Rhythm is regular. Respiratory: Airway is patent Respiratory effort is even, unlabored, Respiratory pattern is regular, symmetrical. GI: Patient currently denies nausea, vomiting. Derm: Skin is intact, is healthy with good turgor, Skin is dry, Skin is normal. Musculoskeletal: Range of motion: intact in all extremities. 15:00 Reassessment: Patient appears in no apparent distress at this time. Patient and/or zb family updated on plan of care and expected duration. Pain level reassessed. Patient is alert, oriented x 3, equal unlabored respirations, skin warm/dry/pink. Vital Signs: 13:22 Resp 16; Pulse Ox 97% on R/A; Weight 95.25 kg; Height 5 ft. 4 in. (162.56 cm); Pain iw 10/10; 15:16 BP 129 / 84 LA Standing (auto/lg); Pulse 54; Pulse Ox 98% on R/A; dh4 15:16 BP 123 / 72 LA Sitting (auto/lg); Pulse 56; Pulse Ox 100% on R/A; dh4 15:16 BP 116 / 60 LA Supine (auto/lg); Pulse 55; Pulse Ox 100% on R/A; dh4 13:22 Body Mass Index 36.05 (95.25 kg, 162.56 cm) ED Course: 13:15 Patient arrived in ED. iw 13:17 Yadira Schuster RN is Primary Nurse. zb 13:20 Triage completed. iw 13:22 Arm band placed on. iw 13:25 Chris Trinidad NP is PHCP. pm1 13:25 Fady Corey MD is Attending Physician. pm1 14:05 CT Head Brain wo Cont In Process Unspecified. EDMS 14:35 No provider procedures requiring assistance completed. Inserted saline lock: 20 gauge iw in right antecubital area, using aseptic technique. Blood collected. 14:36 XRAY Chest (1 view) In Process Unspecified. EDMS 15:42 Patient has correct armband on for positive identification. quality assurance monitor final on. Pulse zb ox on. NIBP on. Door closed. Noise minimized. 19:13 IV discontinued, intact, bleeding controlled, No redness/swelling at site. Pressure em dressing applied. Administered Medications: No medications were administered Outcome: 18:57 Discharge ordered by MD. pm1 19:13 Discharged to home ambulatory. em 19:13 Condition: stable 19:13 Discharge instructions given to patient, Instructed on discharge instructions, follow up and referral plans. Demonstrated understanding of instructions, follow-up care. 19:13 Patient left the ED. em Signatures: Dispatcher [employer] Thiago Lafleur RN RN em Williams, Irene, RN RN Chris Trinidad NP MANAGER MEDICARE pm1 Zachary Bentley [facility] Yadira Schuster RN RN zb
--- NOTE | 2021-01-08 18:58 | EDPHYS ---
Physician Documentation [facility] Name: Courtney Schuster Age: 40 yrs Sex: Female : 1980 Arrival Date: 01/08/2021 Time: 13:15 Bed 30 Private MD: ED Physician Fady Corey HPI: 01/08 14:26 This 40 yrs old Black Female presents to ER via EMS with complaints of Syncope. pm1 14:26 The patient has experienced syncope. Onset: The symptoms/episode began/occurred just pm1 prior to arrival. Duration: This was a single episode, that lasted an unknown period of time. Context: the episode(s) was witnessed, by co-worker(s), occurred at work, occurred while the patient was standing, Just prior to the episode the patient experienced headache, Vertigo. Associated injury: The patient did not suffer any apparent associated injury. Associated signs and symptoms: The patient has no apparent associated signs or symptoms, Pertinent negatives: abdominal pain, chest pain, shortness of breath. Current symptoms: Currently, the patient is not experiencing any symptoms. The patient has not experienced similar symptoms in the past. The patient has not recently seen a physician. Patient reports headache that lasts for roughly 3 to 4 h located central forehead for the past 3 days. Headache resolved with rest, meditation relaxation in a quiet space without medications. Patient also reports exposure to Covid positive family member. 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 - Social history:: Smoking status: Patient/guardian denies using tobacco, the patient reports quitting approximately 1 years ago. ROS: 14:26 Constitutional: Negative for fever, chills, and weight loss, Cardiovascular: Negative pm1 for chest pain, palpitations, and edema, Respiratory: Negative for shortness of breath, cough, wheezing, and pleuritic chest pain, Abdomen/GI: Negative for abdominal pain, nausea, vomiting, diarrhea, and constipation, Back: Negative for injury and pain, MS/Extremity: Negative for injury and deformity, Skin: Negative for injury, rash, and discoloration. 14:26 Neuro: Positive for headache, of the forehead. 14:26 All other systems are negative. pm1 Exam: 14:26 Abdomen/GI: Exam negative for acute changes, Palpation: abdomen is soft and non-tender, pm1 in all quadrants. 14:26 Constitutional: This is a well developed, well nourished patient who is awake, alert, and in no acute distress. Head/Face: Normocephalic, atraumatic. 14:26 Back: No spinal tenderness. No costovertebral tenderness. Full range of motion. Skin: Warm, dry with normal turgor. Normal color with no rashes, no lesions, and no evidence of cellulitis. MS/ Extremity: Pulses equal, no cyanosis. Neurovascular intact. Full, normal range of motion. 14:26 Eyes: Exam is negative for acute changes, Periorbital structures: appear normal, Pupils: no acute changes, Extraocular movements: no acute changes, Conjunctiva: no acute changes, no injection. 14:26 ENT: Mouth: no acute changes, Lips: normal, Oral mucosa: normal, pink and intact, moist. 14:26 Cardiovascular: Exam negative for acute changes, Rate: normal, Rhythm: regular, Pulses: no pulse deficits are appreciated, Heart sounds: normal, normal S1and S2. 14:26 Respiratory: Exam negative for acute changes, respiratory distress, shortness of breath, Breath sounds: are clear throughout. 14:26 Abdomen/GI: Inspection: abdomen appears normal, Palpation: abdomen is soft and non-tender, in all quadrants. 14:26 Neuro: Exam negative for acute changes, Orientation: is normal, Mentation: is normal, Motor: is normal, moves all fours. Vital Signs: 13:22 Resp 16; Pulse Ox 97% on R/A; Weight 95.25 kg; Height 5 ft. 4 in. (162.56 cm); Pain iw 10/10; 15:16 BP 129 / 84 LA Standing (auto/lg); Pulse 54; Pulse Ox 98% on R/A; dh4 15:16 BP 123 / 72 LA Sitting (auto/lg); Pulse 56; Pulse Ox 100% on R/A; dh4 15:16 BP 116 / 60 LA Supine (auto/lg); Pulse 55; Pulse Ox 100% on R/A; dh4 13:22 Body Mass Index 36.05 (95.25 kg, 162.56 cm) iw MDM: 13:25 Patient medically screened. boubacar 18:39 Data reviewed: vital signs. Data interpreted: Pulse oximetry: on room air is 100 %. pm1 Interpretation: normal. 18:55 Counseling: I had a detailed discussion with the patient and/or guardian regarding: the pm1 historical points, exam findings, and any diagnostic results supporting the discharge/admit diagnosis, lab results, radiology results, the need for outpatient follow up, to return to the emergency department if symptoms worsen or persist or if there are any questions or concerns that arise at home. 01/08 13:46 Order name: Basic Metabolic Panel pm1 01/08 13:46 Order name: CBC with Diff pm1 01/08 13:46 Order name: LFT's; Complete Time: 15:18 pm1 01/08 13:46 Order name: Magnesium; Complete Time: 15:18 pm1 01/08 13:46 Order name: NT PRO-BNP; Complete Time: 15:18 pm1 01/08 13:46 Order name: PT-INR; Complete Time: 15:37 pm1 01/08 13:46 Order name: Troponin (emerg Dept Use Only); Complete Time: 15:18 pm1 01/08 13:47 Order name: Basic Metabolic Panel; Complete Time: 15:18 EDMS 01/08 13:47 Order name: CBC with Automated Diff; Complete Time: 15:18 EDMS 01/08 14:21 Order name: COVID-19 : Document "Date of Symptom Onset" if Symptomatic. pm1 01/08 14:23 Order name: Urine Dipstick-Ancillary; Complete Time: 15:18 EDMS 01/08 15:29 Order name: SARS-COV-2 RT PCR; Complete Time: 15:37 EDMS 01/08 17:20 Order name: Troponin (emerg Dept Use Only) pm1 01/08 13:46 Order name: XRAY Chest (1 view); Complete Time: 15:18 pm1 01/08 13:46 Order name: EKG; Complete Time: 13:47 pm1 01/08 13:46 Order name: Cardiac monitoring; Complete Time: 14:50 pm1 01/08 13:46 Order name: EKG - Nurse/Tech; Complete Time: 14:50 pm1 01/08 13:46 Order name: IV Saline Lock; Complete Time: 14:50 pm1 01/08 13:46 Order name: Labs collected and sent; Complete Time: 14:50 pm1 01/08 13:46 Order name: O2 Per Protocol; Complete Time: 14:50 pm1 01/08 13:46 Order name: O2 Sat Monitoring; Complete Time: 14:50 pm1 01/08 13:46 Order name: CT Head Brain wo Cont; Complete Time: 14:20 pm1 01/08 13:47 Order name: Orthostatic Blood Pressure; Complete Time: 15:18 pm1 01/08 17:20 Order name: Troponin (Emerg Dept Use Only); Complete Time: 18:55 EDMS Administered Medications: No medications were administered Disposition: 01/09 09:23 Co-signature as Attending Physician, Fady Corey MD I agree with the assessment and boubacar plan of care. Disposition Summary: 01/08/21 18:57 Discharge Ordered Location: Home pm1 Problem: new pm1 Symptoms: have improved pm1 Condition: Stable pm1 Diagnosis - Syncope and collapse pm1 - Headache pm1 Followup: pm1 - With: Emergency Department - When: As needed - Reason: Worsening of condition Followup: pm1 - With: Private Physician - When: 2 - 3 days - Reason: Recheck today's complaints, Continuance of care, Re-evaluation by your physician Discharge Instructions: - Discharge Summary Sheet pm1 - General Headache Without Cause pm1 - Syncope pm1 Forms: - Medication Reconciliation Form pm1 - Thank You Letter pm1 - Antibiotic Education pm1 - Prescription Opioid Use pm1 Signatures: Dispatcher [employer] Fady Gonzáles MD MD cha Williams, Irene, RN RN Chris Bullock NP MATHEMATICS PROFESSOR pm1 Corrections: (The following items were deleted from the chart) 01/08 14:37 14:22 CORONAVIRUS ordered. [facility] EDID
[2021-01-08 19:27] VITALS: BP 116/60; O2SAT 100
--- NOTE | 2021-01-09 10:41 | EKG ---
Test Date: 2021-01-08 Test Time: 14:21:38 Client Engagement Specialist: LEIGH MEASUREMENT RESULTS: Intervals: Rate: 56 NH: 166 QRSD: 80 QT: 412 QTc: 397 [place]: P: 49 NH: 166 QRS: 34 T: 30 INTERPRETIVE STATEMENTS: Sinus bradycardia with sinus arrhythmia Otherwise normal ECG Compared to ECG 04/17/2010 16:19:25 Sinus rhythm no longer present Left ventricular hypertrophy no longer present Electronically Signed On 01-09-21 10:39:50 CDT by Noble Crane
== END 2021-01-08 19:13 | disposition home or self-care (01) ==
LOC: ER 13:08
DX: R51.9 Headache, unspecified (principal); Z20.822 Contact with and (suspected) exposure to COVID-19; Z88.0 Allergy status to penicillin; Z88.1 Allergy status to other antibiotic agents; Z88.5 Allergy status to narcotic agent
CPT/HCPCS: 36415; 70450; 71045; 80048; 80076; 81003; 83735; 83880; 84484; 85025; 85610; 93005; 99284; U0003

== ENCOUNTER 2021-03-08 17:19 | Emergency (ER) | payer SELFPAY ==
--- NOTE | 2021-03-08 21:45 | RAD REPORT ---
EXAM DESCRIPTION: CT - Head Brain Wo Cont - 03/08/2021 9:33 pm CLINICAL HISTORY: Headache COMPARISON: December 2020 TECHNIQUE: Computed axial tomography of the head was obtained. IV contrast was not requested. All CT scans are performed using dose optimization technique as appropriate and may include automated exposure control or mA/KV adjustment according to patient size. FINDINGS: An intracranial bleed is not seen . The ventricles are normal in caliber. No extra-axial fluid collection is noted. Fluid within the sinuses/ mastoids is not seen. IMPRESSION: No acute intracranial abnormality is seen. If patient's symptoms persist MRI of the bra in would be recommended.
[2021-03-08] MEDS ORDERED: METOCLOPRAMIDE 10 MG/2mL INJ ONE (21:56)
[2021-03-08] MEDS ORDERED: DIPHENHYDRAMINE 50 MG/ML VIAL ONE (21:57)
[2021-03-08] MEDS ORDERED: ACETAMINOPHEN 500 MG TAB ONE (21:57)
[2021-03-08] MEDS ORDERED: NA CHLORIDE 0.9% 1,000 ML ONE (21:57)
[2021-03-08 22:21] LABS: Absolute Lymphocytes (CBC) 3.7 K/uL (0.7-4.9); Basophils % 1.6 % (0-1.3); Hematocrit 34.8 % (36.0-45.0); Lymphocytes % 51.5 % (15.3-44.8); MPV 8.9 fL (7.6-11.3); RBC Red Blood Cell Count 4.63 M/uL (3.86-4.86)
[2021-03-08 22:25] LABS: ALT/SGPT 26 U/L (12-78); AST/SGOT 19 U/L (15-37); Albumin 3.6 g/dL (3.4-5.0); Alkaline Phosphatase 57 U/L (45-117); BUN Blood Urea Nitrogen 11 mg/dL (7-18); Bicarbonate 28 mmol/L (21-32); Bilirubin Direct < 0.1 mg/dL (0-0.2); Bilirubin Total 0.1 mg/dL (0.2-1.0); Glucose Level 97 mg/dL (74-106); Potassium 3.5 mmol/L (3.5-5.1); Sodium Level 143 mmol/L (136-145)
--- NOTE | 2021-03-08 23:24 | ER ---
Nurse's Notes [facility] Name: Courtney Schuster Age: 40 yrs Sex: Female : 1980 Arrival Date: 03/08/2021 Time: 17:21 Bed DX3 Private MD: Diagnosis: Headache Presentation: 03/08 18:04 Chief complaint: Patient states: Headache began today and is making pt feel nauseous. vg1 States if look down it 'feels like my nose is going to bleed and theres a lot of pressure in my ears and eyes'. Ear pain in Roni ears. Coronavirus screen: Vaccine status: Patient reports receiving the 2nd dose of the covid vaccine. Client denies travel out of the [place] in the last 14 days. Ebola Screen: Patient negative for fever greater than or equal to 101.5 degrees Fahrenheit, and additional compatible Ebola Virus Disease symptoms. Mechanism of Injury: No Mechanism of Injury. The patient denies any loss of vision. Initial Sepsis Screen: Does the patient meet any 2 criteria? No. Patient's initial sepsis screen is negative. Does the patient have a suspected source of infection? No. Patient's initial sepsis screen is negative. Risk Assessment: Do you want to hurt yourself or someone else? Patient reports no desire to harm self or others. Onset of symptoms was March 08, 2021. 18:04 Method Of Arrival: Ambulatory vg1 18:04 Acuity: LEIF 3 vg1 Triage Assessment: 18:07 General: Appears in no apparent distress. uncomfortable, Behavior is calm, cooperative. vg1 Pain: Complains of pain in head. EENT: Reports pain in right eye, right ear, left ear and left eye. 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 - Social history:: Smoking status: Patient denies any tobacco usage or history of. Screenin:09 Abuse screen: Denies threats or abuse. Denies injuries from another. Nutritional bc5 screening: No deficits noted. Tuberculosis screening: No symptoms or risk factors identified. Fall Risk None identified. No fall in past 12 months (0 pts). No secondary diagnosis (0 pts). No IV (0 pts). Ambulatory Aid- None/Bed Rest/Nurse Assist (0 pts). Gait- Normal/Bed Rest/Wheelchair (0 pts) Mental Status- Oriented to own ability (0 pts). Total Mckeon Fall Scale indicates No Risk (0-24 pts). Assessment: 19:54 EENT: Eyes WNL. Sclera/Cornea are clear in outer aspect of conjuctiva of right eye, bc5 iris of right eye, inner aspect of conjuctiva of right eye, outer aspect of conjuctiva of left eye, iris of left eye and inner aspect of conjunctiva of left eye. 19:55 Neuro: No deficits noted. Cardiovascular: No deficits noted. Respiratory: No deficits bc5 noted. 20:10 Reassessment: Pt c/o headache "It's kind of in the front between my eyes and my bc5 temples" Pt took OTC meds w/no reported relief. Pt denies any visual problems, dizziness, lightheaded at this time. A\\T\\O x 3, RR is even and speaking in clear and complete sentences at this time. Vital Signs: 18:04 BP 155 / 109; Pulse 94; Resp 16; Temp 98.3; Pulse Ox 97% ; Weight 99.79 kg; Height 5 vg1 ft. 4 in. (162.56 cm); Pain 10/10; 21:53 BP 142 / 87; Pulse 87; Resp 16; Temp 98.4(O); Pulse Ox 100% on R/A; Pain 7/10; bc5 23:46 BP 135 / 88; Pulse 81; Resp 15; Temp 98(O); Pulse Ox 100% on R/A; Pain 0/10; bc5 18:04 Body Mass Index 37.76 (99.79 kg, 162.56 cm) vg1 Visual Acuity: 20:56 Left Eye Visual acuity 20/20, Normal, Reactive To Accomodation; Right Eye Visual acuity bc5 20/20, Normal, Reactive To Accomodation; Both Eyes Visual acuity 20/20; Without Lenses; [place] Coma Score: 23:21 Eye Response: spontaneous(4). Verbal Response: oriented(5). Motor Response: obeys mh7 commands(6). Total: 15. ED Course: 17:21 Patient arrived in ED. as 18:07 Triage completed. vg1 18:07 Arm band placed on. vg1 19:54 Acacia Cervantes, RN is Primary Nurse. bc5 20:09 Patient has correct armband on for positive identification. bc5 20:09 No provider procedures requiring assistance completed. bc5 20:28 Isra Carrasco MD is Attending Physician. mh7 21:33 CT Head Brain wo Cont In Process Unspecified. EDMS 21:53 Inserted saline lock: 20 gauge in left antecubital area, using aseptic technique. bc5 23:23 Marcos Buitrago MD is Referral Physician. 7 23:29 IV discontinued. mr2 Administered Medications: 21:52 Drug: NS 0.9% 1000 ml Route: IV; Rate: 1000 ml; Site: left antecubital; bc5 21:52 Drug: Reglan (metoCLOPramide) 10 mg Route: IVP; Site: left antecubital; 5 21:52 Drug: Benadryl (diphenhydrAMINE) 50 mg Route: IVP; Site: left antecubital; bc5 21:53 Drug: Tylenol 1000 mg Route: PO; 5 Outcome: 23:24 Discharge ordered by . 7 23:28 Discharged to home ambulatory. mr2 23:28 Condition: stable 23:28 Discharge instructions given to patient, Instructed on discharge instructions, follow up and referral plans. 23:46 Patient left the ED. [facility] Signatures: Dispatcher [employer] EDIN Sade Allen Victoria, RN RN 1 Isra Carrasco MD MD [facility] Acacia Cervantes, RN RN 5 Shoaib Baird, SIMEON RN mr2 Corrections: (The following items were deleted from the chart) 18:09 18:04 Pulse 94bpm; Resp 16bpm; Pulse Ox 97%; Temp 98.3F; 99.79 kg; Height 5 ft. 4 in.; vg1 BMI: 37.7; Pain 10/10; vg1
--- NOTE | 2021-03-08 23:24 | EDPHYS ---
Physician Documentation [facility] Name: Courtney Schuster Age: 40 yrs Sex: Female : 1980 Arrival Date: 03/08/2021 Time: 17:21 Bed DX3 Private MD: ED Physician Isra Carrasco HPI: 03/08 20:50 This 40 yrs old Black Female presents to ER via Ambulatory with complaints of Eye Pain, mh7 Nose Pain, Headache. 20:50 The patient complains of pain to the forehead, right cheek and left ear. mh7 20:50 The patient describes the headache as intermittent, a pressure, waxing and waning. mh7 Onset: The symptoms/episode began/occurred this morning, today. Associated signs and symptoms: Pertinent positives: nausea, sinus tenderness, Pertinent negatives: altered mental status, dizziness, fever, malaise, neck stiffness, paresthesias, Photophobia rash, sinus congestion, vision changes, vision loss, vomiting, weakness, vertigo. Severity of symptoms: At its worst the pain was moderate, earlier today, in the emergency department the pain has improved, moderately. Headache History: The patient has had previous headaches and this one is similar to previous episodes. The symptoms are alleviated by nothing. the symptoms are aggravated by nothing. 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 - Social history:: Smoking status: Patient denies any tobacco usage or history of. ROS: 20:50 Constitutional: Negative for fever, chills, and weight loss, Eyes: Negative for injury, mh7 pain, redness, and discharge. 20:50 Neck: Negative for injury, pain, and swelling, Cardiovascular: Negative for chest pain, palpitations, and edema, Respiratory: Negative for shortness of breath, cough, wheezing, and pleuritic chest pain. 20:50 Back: Negative for injury and pain, : Negative for injury, bleeding, discharge, and swelling, MS/Extremity: Negative for injury and deformity, Skin: Negative for injury, rash, and discoloration. 20:50 Psych: Negative for depression, anxiety, suicide ideation, homicidal ideation, and hallucinations, Allergy/Immunology: Negative for hives, rash, and allergies, Endocrine: Negative for neck swelling, polydipsia, polyuria, polyphagia, and marked weight changes, Hematologic/Lymphatic: Negative for swollen nodes, abnormal bleeding, and unusual bruising. 20:50 ENT: Positive for ear pain. 20:50 Abdomen/GI: Negative for abdominal pain, diarrhea, constipation, abdominal cramps, abdominal distension, anorexia, dysphagia, hematemesis, black/tarry stool, rectal pain, rectal bleeding, bowel incontinence, flatulence. 20:50 Neuro: Negative for altered mental status, dizziness, gait disturbance, hearing loss, loss of consciousness, numbness, seizure activity, speech changes, syncope, near syncope, tingling, tinnitus, tremor, visual changes, weakness. Exam: 20:50 Constitutional: This is a well developed, well nourished patient who is awake, alert, mh7 and in no acute distress. 20:50 Eyes: Pupils equal round and reactive to light, extra-ocular motions intact. Lids and lashes normal. Conjunctiva and sclera are non-icteric and not injected. Cornea within normal limits. Periorbital areas with no swelling, redness, or edema. ENT: Nares patent. No nasal discharge, no septal abnormalities noted. Tympanic membranes are normal and external auditory canals are clear. Oropharynx with no redness, swelling, or masses, exudates, or evidence of obstruction, uvula midline. Mucous membranes moist. Neck: Trachea midline, no thyromegaly or masses palpated, and no cervical lymphadenopathy. Supple, full range of motion without nuchal rigidity, or vertebral point tenderness. No Meningismus. Chest/axilla: Normal chest wall appearance and motion. Nontender with no deformity. No lesions are appreciated. Cardiovascular: Regular rate and rhythm with a normal S1 and S2. No gallops, murmurs, or rubs. Normal PMI, no JVD. No pulse deficits. Respiratory: Lungs have equal breath sounds bilaterally, clear to auscultation and percussion. No rales, rhonchi or wheezes noted. No increased work of breathing, no retractions or nasal flaring. Abdomen/GI: Soft, non-tender, with normal bowel sounds. No distension or tympany. No guarding or rebound. No evidence of tenderness throughout. Back: No spinal tenderness. No costovertebral tenderness. Full range of motion. Skin: Warm, dry with normal turgor. Normal color with no rashes, no lesions, and no evidence of cellulitis. MS/ Extremity: Pulses equal, no cyanosis. Neurovascular intact. Full, normal range of motion. Neuro: Awake and alert, GCS 15, oriented to person, place, time, and situation. Cranial nerves II-XII grossly intact. Motor strength 5/5 in all extremities. Sensory grossly intact. Cerebellar exam normal. Normal gait. Psych: Awake, alert, with orientation to person, place and time. Behavior, mood, and affect are within normal limits. 20:50 Head/face: Noted is tenderness, that is moderate, of the forehead, right cheek and left cheek, Sinus tenderness, that is moderate, is located over the right frontal sinus, left frontal sinus, right ethmoid sinus, left ethmoid sinus, right maxillary sinus and left maxillary sinus. Vital Signs: 18:04 BP 155 / 109; Pulse 94; Resp 16; Temp 98.3; Pulse Ox 97% ; Weight 99.79 kg; Height 5 vg1 ft. 4 in. (162.56 cm); Pain 10/10; 21:53 BP 142 / 87; Pulse 87; Resp 16; Temp 98.4(O); Pulse Ox 100% on R/A; Pain 7/10; bc5 23:46 BP 135 / 88; Pulse 81; Resp 15; Temp 98(O); Pulse Ox 100% on R/A; Pain 0/10; bc5 18:04 Body Mass Index 37.76 (99.79 kg, 162.56 cm) vg1 [place] Coma Score: 23:21 Eye Response: spontaneous(4). Verbal Response: oriented(5). Motor Response: obeys mh7 commands(6). Total: 15. Visual Acuity: 20:56 Left Eye Visual acuity 20/20, Normal, Reactive To Accomodation; Right Eye Visual acuity bc5 20/20, Normal, Reactive To Accomodation; Both Eyes Visual acuity 20/20; Without Lenses; MDM: 23:21 Differential diagnosis: cluster headache, intracerebral hemorrhage, migraine, mh7 sinusitis, tension headache. Data reviewed: vital signs, nurses notes, lab test result(s), CBC, electrolytes, radiologic studies, CT scan. Data interpreted: Pulse oximetry: on room air is 100 %. Interpretation: normal. Counseling: I had a detailed discussion with the patient and/or guardian regarding: the historical points, exam findings, and any diagnostic results supporting the discharge/admit diagnosis, the presence of at least one elevated blood pressure reading (>120/80) during this emergency department visit, lab results, radiology results, the need for outpatient follow up, to return to the emergency department if symptoms worsen or persist or if there are any questions or concerns that arise at home. Response to treatment: the patient's symptoms have resolved after treatment, the patient's blood pressure is in an acceptable range, mental status has returned to baseline, the patient no longer shows bradycardia, the patient is not short of breath, the patient is not tachycardic, the patient's pain is gone, the patient's temperature has normalized. 23:24 Patient medically screened. [facility] 03/08 20:58 Order name: CBC with Diff 7 03/08 20:58 Order name: BMP; Complete Time: 22:37 [facility] 03/08 20:58 Order name: LFT's; Complete Time: 22:37 7 03/08 20:58 Order name: CT Head Brain wo Cont; Complete Time: 22:37 [facility] 03/08 20:59 Order name: CBC with Automated Diff EDMS 03/08 22:26 Order name: Manual Differential EDMS Administered Medications: 21:52 Drug: NS 0.9% 1000 ml Route: IV; Rate: 1000 ml; Site: left antecubital; bc5 21:52 Drug: Reglan (metoCLOPramide) 10 mg Route: IVP; Site: left antecubital; bc5 21:52 Drug: Benadryl (diphenhydrAMINE) 50 mg Route: IVP; Site: left antecubital; bc5 21:53 Drug: Tylenol 1000 mg Route: PO; bc5 Disposition Summary: 03/08/21 23:24 Discharge Ordered Location: Home mh Problem: new mh7 Symptoms: have improved mh7 Condition: Stable mh7 Diagnosis - Headache mh7 Followup: 7 - With: Private Physician - When: 1 - 2 days - Reason: Worsening of condition, Recheck today's complaints, Continuance of care, Re-evaluation by your physician Followup: [facility] - With: Marcos Buitrago MD - When: 1 - 2 days - Reason: Worsening of condition, Recheck today's complaints Discharge Instructions: - Discharge Summary Sheet [facility] - General Headache Without Cause [facility] Forms: - Medication Reconciliation Form [facility] - Thank You Letter [facility] - Antibiotic Education [facility] - Prescription Opioid Use [facility] Signatures: Dispatcher [employer] EDNaina Davis RN RN vg1 Isra Carrasco MD MD 7 Acacia Cervantes RN RN bc5 Corrections: (The following items were deleted from the chart) : 21: The patient complains of pain to the forehead, right cheek and left cheek, [place] [id number] : 21:22 The patient describes the headache as intermittent, throbbing, waxing and waning, [place] [id number] : 21:22 Onset: The symptoms/episode began/occurred this morning, today, [place] [id number]
[2021-03-08 23:28] LABS: Blood Morphology Comment NOT SEEN (NOT SEEN); Platelet Estimate ADEQ
[2021-03-08 23:55] VITALS: O2SAT 100
[2021-03-08 23:56] VITALS: BP 135/88; TEMP 98
== END 2021-03-08 23:46 | disposition home or self-care (01) ==
LOC: ER 17:19
DX: R51.9 Headache, unspecified (principal); Z88.0 Allergy status to penicillin; Z88.1 Allergy status to other antibiotic agents; Z88.5 Allergy status to narcotic agent
CPT/HCPCS: 36415; 70450; 80048; 80076; 85025; 96374; 96375; 99284; J1200; J2765; J7030

== ENCOUNTER 2021-04-01 09:41 | Emergency (ER) | payer SELFPAY ==
[2021-04-01] MEDS ORDERED: NA CHLORIDE 0.9% 1,000 ML ONE (09:58)
[2021-04-01] MEDS ORDERED: ONDANSETRON 4 MG/2 ML VIAL ONE (09:58)
[2021-04-01 10:32] LABS: Absolute Lymphocytes (CBC) 0.4 K/uL (0.7-4.9); Basophils % 0.2 % (0-1.3); Hematocrit 38.8 % (36.0-45.0); Lymphocytes % 3.1 % (15.3-44.8); MPV 8.8 fL (7.6-11.3); RBC Red Blood Cell Count 5.21 M/uL (3.86-4.86)
[2021-04-01 10:38] LABS: ALT/SGPT 25 U/L (12-78); AST/SGOT 20 U/L (15-37); Albumin 3.6 g/dL (3.4-5.0); Alkaline Phosphatase 65 U/L (45-117); BUN Blood Urea Nitrogen 10 mg/dL (7-18); Bicarbonate 22 mmol/L (21-32); Bilirubin Direct 0.1 mg/dL (0-0.2); Bilirubin Total 0.4 mg/dL (0.2-1.0); Glucose Level 130 mg/dL (74-106); Lipase 45 U/L (73-393); Potassium 3.6 mmol/L (3.5-5.1); Protein, Total 8.1 g/dL (6.4-8.2); Sodium Level 138 mmol/L (136-145)
[2021-04-01 11:09] LABS: Blood Morphology Comment NOT SEEN (NOT SEEN); Platelet Estimate ADEQ
--- NOTE | 2021-04-01 11:23 | RAD REPORT ---
EXAM DESCRIPTION: CT - Abdomen Pelvis W Contrast - 04/01/2021 11:07 am CLINICAL HISTORY: ABD PAIN COMPARISON: No comparisons TECHNIQUE: Biphasic, helical CT imaging of the abdomen and pelvis was performed following 100 ml non -ionic IV contrast. No oral contrast administered. All CT scans are performed using dose optimization technique as appropriate and may include automated exposure control or mA/KV adjustment according to patient size. FINDINGS: No suspicious findings in the lung bases. The liver, spleen, and pancreas show no suspicious findings. Gallbladder and biliary tree are also wi thout suspicious finding. Symmetric renal function is seen with no hydronephrosis or suspicious renal mass. No pyelonephritis o r acute parenchymal process. No bladder abnormalities. No adrenal abnormalities. No uterine suspiciou s finding. No ovarian abnormalities are identified. Fallopian tubes are prominent but not believed to be pathologic. This could be sequela of prior ligation. No edema or inflammatory stranding in the pe lvis. No dilated bowel loops or bowel wall thickening. Appendix is normal. No acute GI process seen. No free air, free fluid or inflammatory stranding. No hernia, mass or bulky lymphadenopathy. No suspicious bony findings. IMPRESSION: Contrast enhanced CT abdomen and pelvis showing no significant or suspicious finding.
[2021-04-01 11:40] LABS: Urine Blood 3+ (Negative); Urine Glucose Negative (Negative); Urine Protein Negative (Negative); Urine pH 5.5 (5.0-7.0)
--- NOTE | 2021-04-01 11:41 | ER ---
Nurse's Notes [facility] Name: Courtney Schuster Age: 40 yrs Sex: Female : 1980 Arrival Date: 04/01/2021 Time: 09:43 Bed 14 Private MD: Diagnosis: Nausea with vomiting, unspecified;Diarrhea, unspecified Presentation: 04/01 09:54 Chief complaint: Patient states: Pt. reports nausea, vomiting, and diarrhea for the jt3 last two days. Denies SOB or chest pain. Pt. states she feels bloated. Alert and oriented x4. No past medical hx. Coronavirus screen: Vaccine status: Patient reports receiving the 2nd dose of the covid vaccine. Ebola Screen: Patient negative for fever greater than or equal to 101.5 degrees Fahrenheit, and additional compatible Ebola Virus Disease symptoms Patient denies exposure to infectious person. Patient denies travel to an Ebola-affected area in the 21 days before illness onset. Initial Sepsis Screen: Does the patient meet any 2 criteria? No. Patient's initial sepsis screen is negative. Does the patient have a suspected source of infection? No. Patient's initial sepsis screen is negative. Risk Assessment: Do you want to hurt yourself or someone else? Patient reports no desire to harm self or others. Onset of symptoms was March 31, 2021. 09:54 Method Of Arrival: Ambulatory jt3 09:54 Acuity: LEIF 3 jt3 Triage Assessment: 09:55 General: Appears in no apparent distress. Behavior is calm, cooperative. Pain: jt3 Complains of pain in abdomen Pain does not radiate. Pain currently is 4 out of 10 on a pain scale. Cardiovascular: No deficits noted. Respiratory: No deficits noted. GI: Reports diarrhea, nausea, vomiting. 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 - Social history:: Smoking status: Patient/guardian denies using tobacco. Screenin:57 Abuse screen: Denies threats or abuse. Denies injuries from another. Nutritional jt3 screening: No deficits noted. Tuberculosis screening: No symptoms or risk factors identified. Fall Risk None identified. Assessment: 09:57 GI: See Triage Assessment. jt3 11:57 GI: Abdomen is round. jt3 Vital Signs: 09:54 Weight 95.25 kg; Height 5 ft. 4 in. (162.56 cm); jt3 09:58 BP 134 / 60; Pulse 70; Resp 17; Temp 98.7; Pulse Ox 99% on R/A; jt3 11:51 BP 134 / 78; Pulse 77; Resp 17; Pulse Ox 100% on R/A; jt3 09:54 Body Mass Index 36.05 (95.25 kg, 162.56 cm) jt3 ED Course: 09:43 Patient arrived in ED. as 09:44 Lori Herman FNP-C is [facility]. kb 09:44 Bertin Lopez MD is Attending Physician. kb 09:49 Maicol Rankin RN is Primary Nurse. jt3 09:55 Triage completed. jt3 09:55 Arm band placed on right wrist. jt3 09:57 Patient has correct armband on for positive identification. Bed in low position. Call jt3 light in reach. Side rails up X2. 09:57 No provider procedures requiring assistance completed. jt3 11:07 CT Abd/Pelvis - IV Contrast Only In Process Unspecified. EDMS 11:51 IV discontinued, intact, bleeding controlled, No redness/swelling at site. Pressure jt3 dressing applied. Administered Medications: 10:10 Drug: NS 0.9% 1000 ml Route: IV; Rate: 1000 ml; Site: right antecubital; vg1 11:30 Follow up: Response: No adverse reaction; IV Status: Completed infusion; IV Intake: jt3 1000ml 10:13 Drug: Zofran (Ondansetron) 4 mg Route: IVP; Site: right antecubital; vg1 11:25 Follow up: Response: No adverse reaction jt3 Intake: 11:30 IV: 1000ml; Total: 1000ml. jt3 Outcome: 11:40 Discharge ordered by . kb 11:51 Discharged to home ambulatory. jt3 11:51 Condition: good 11:51 Discharge instructions given to patient, Instructed on discharge instructions, Demonstrated understanding of instructions, medications. 11:58 Patient left the ED. jt3 Signatures: Dispatcher [employer] EDMS Lori Herman FNP-C COMMERCIAL ENERGY AUDITOR-Sade Hines Victoria, RN RN vg1 Maicol Rankin, RN RN jt3
--- NOTE | 2021-04-01 11:41 | EDPHYS ---
Physician Documentation [facility] Name: Courtney Schuster Age: 40 yrs Sex: Female : 1980 Arrival Date: 04/01/2021 Time: 09:43 Bed 14 Private MD: ED Physician Bertin Lopez HPI: 04/01 10:04 This 40 yrs old Black Female presents to ER via Ambulatory with complaints of kb Vomiting/Diarrhea, Leg Pain. 10:04 The patient presents to the emergency department with nausea, vomiting, diarrhea, kb abdominal pain. Onset: The symptoms/episode began/occurred 2 day(s) ago. Possible causes: unknown. The symptoms are aggravated by nothing. The symptoms are alleviated by nothing. Associated signs and symptoms: Pertinent positives: abdominal pain, diarrhea, nausea, vomiting. Severity of symptoms: At their worst the symptoms were moderate in the emergency department the symptoms are unchanged. The patient has not experienced similar symptoms in the past. The patient has not recently seen a physician. 10:05 Pt reports n/v/d for 2 days. Leg cramps started last night. 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 - Social history:: Smoking status: Patient/guardian denies using tobacco. ROS: 10:03 Constitutional: Negative for fever, chills, and weight loss. kb 10:03 Abdomen/GI: Positive for abdominal pain, nausea, vomiting, and diarrhea. 10:03 MS/extremity: Positive for leg cramps. 10:03 All other systems are negative. Exam: 10:04 Constitutional: This is a well developed, well nourished patient who is awake, alert, kb and in no acute distress. Head/Face: Normocephalic, atraumatic. ENT: Moist Mucous membranes Respiratory: Respirations even and unlabored. No increased work of breathing, no retractions or nasal flaring. Skin: Warm, dry with normal turgor. Normal color. MS/ Extremity: Pulses equal, no cyanosis. Neurovascular intact. Full, normal range of motion. Neuro: Awake and alert, GCS 15, oriented to person, place, time, and situation. Moves all extremities. Normal gait. Psych: Awake, alert, with orientation to person, place and time. Behavior, mood, and affect are within normal limits. 10:04 Abdomen/GI: Inspection: abdomen appears normal, Bowel sounds: normal, Palpation: soft, in all quadrants, mild abdominal tenderness, in all quadrants. Vital Signs: 09:54 Weight 95.25 kg; Height 5 ft. 4 in. (162.56 cm); jt3 09:58 BP 134 / 60; Pulse 70; Resp 17; Temp 98.7; Pulse Ox 99% on R/A; jt3 11:51 BP 134 / 78; Pulse 77; Resp 17; Pulse Ox 100% on R/A; jt3 09:54 Body Mass Index 36.05 (95.25 kg, 162.56 cm) jt3 MDM: 09:48 Patient medically screened. kb 10:04 Data reviewed: vital signs, nurses notes. Data interpreted: Pulse oximetry: on room air kb is 99 %. Interpretation: normal. 11:40 Counseling: I had a detailed discussion with the patient and/or guardian regarding: the kb historical points, exam findings, and any diagnostic results supporting the discharge/admit diagnosis, lab results, radiology results, the need for outpatient follow up, a family practitioner, to return to the emergency department if symptoms worsen or persist or if there are any questions or concerns that arise at home. 04/01 09:51 Order name: Basic Metabolic Panel kb 04/01 09:51 Order name: CBC with Diff 04/01 09:51 Order name: Hepatic Function 04/01 09:51 Order name: Lipase; Complete Time: 10:45 kb 04/01 09:52 Order name: Basic Metabolic Panel; Complete Time: 10:45 EDMS 04/01 09:52 Order name: Liver (Hepatic) Function; Complete Time: 10:45 EDMS 04/01 09:51 Order name: IV Saline Lock; Complete Time: 10:12 kb 04/01 09:51 Order name: CT Abd/Pelvis - IV Contrast Only; Complete Time: 11:37 kb 04/01 11:09 Order name: Manual Differential [facility] 04/01 11:40 Order name: Urine Dipstick-Ancillary EDMS 04/01 11:43 Order name: Urine --Ancillary (enter results) eb 04/01 11:43 Order name: Urine --Ancillary [facility] 04/01 09:51 Order name: Labs collected and sent; Complete Time: 10:12 kb 04/01 09:51 Order name: Urine Dipstick-Ancillary (obtain specimen); Complete Time: 09:56 kb 04/01 09:51 Order name: Urine Test (obtain specimen); Complete Time: 09:56 kb Administered Medications: 10:10 Drug: NS 0.9% 1000 ml Route: IV; Rate: 1000 ml; Site: right antecubital; vg1 11:30 Follow up: Response: No adverse reaction; IV Status: Completed infusion; IV Intake: jt3 1000ml 10:13 Drug: Zofran (Ondansetron) 4 mg Route: IVP; Site: right antecubital; vg1 11:25 Follow up: Response: No adverse reaction jt3 Disposition: 14:14 Co-signature as Attending Physician, Bertin Lopez MD I agree with the assessment and kdr plan of care. Disposition Summary: 04/01/21 11:40 Discharge Ordered Location: Home kb Condition: Stable kb Diagnosis - Nausea with vomiting, unspecified kb - Diarrhea, unspecified kb Followup: kb - With: Emergency Department - When: As needed - Reason: Worsening of condition Followup: kb - With: Private Physician - When: 2 - 3 days - Reason: Recheck today's complaints, Continuance of care, Re-evaluation by your physician Discharge Instructions: - Discharge Summary Sheet kb - Food Choices to Help Relieve Diarrhea, Adult kb - Viral Gastroenteritis, Adult, [id number] kb Forms: - Medication Reconciliation Form kb - Thank You Letter kb - Antibiotic Education kb - Prescription Opioid Use kb Prescriptions: - Zofran 4 mg Oral Tablet - take 1 tablet by ORAL route every 6 hours As needed; 20 tablet; Refills: 0, kb Product Selection Permitted - dicyclomine 20 mg Oral Tablet - take 1 tablet by ORAL route 4 times per day As needed; 20 tablet; Refills: 0, kb Product Selection Permitted Signatures: Dispatcher [employer] EDVA Lori Herman FNP-C FNP-Ckb Rittger, Kevin, MD MD kdr Garcia, Victoria RN RN vg1 Maicol Rankin RN RN jt3
== END 2021-04-01 11:58 | disposition home or self-care (01) ==
LOC: ER 09:41
DX: R19.7 Diarrhea, unspecified (principal); Z88.0 Allergy status to penicillin; Z88.1 Allergy status to other antibiotic agents; Z88.5 Allergy status to narcotic agent
CPT/HCPCS: 36415; 74177; 80048; 80076; 81003; 81025; 83690; 85025; 96361; 96374; 99283; J2405; J7030; Q9967

== ENCOUNTER 2021-04-05 13:16 | Emergency (ER) | payer SELFPAY ==
[2021-04-05 13:56] LABS: Absolute Lymphocytes (CBC) 2.6 K/uL (0.7-4.9); Basophils % 0.4 % (0-1.3); Hematocrit 35.6 % (36.0-45.0); Lymphocytes % 52.8 % (15.3-44.8); MPV 8.4 fL (7.6-11.3); RBC Red Blood Cell Count 4.76 M/uL (3.86-4.86)
[2021-04-05 14:27] LABS: ALT/SGPT 58 U/L (12-78); AST/SGOT 154 U/L (15-37); Albumin 3.3 g/dL (3.4-5.0); Alkaline Phosphatase 59 U/L (45-117); BUN Blood Urea Nitrogen 9 mg/dL (7-18); Bicarbonate 23 mmol/L (21-32); Bilirubin Direct < 0.1 mg/dL (0-0.2); Bilirubin Total 0.2 mg/dL (0.2-1.0); Glucose Level 88 mg/dL (74-106); Lipase 108 U/L (73-393); Potassium 3.5 mmol/L (3.5-5.1); Protein, Total 7.3 g/dL (6.4-8.2); Sodium Level 141 mmol/L (136-145)
[2021-04-05] MEDS ORDERED: PANTOPRAZOLE 40 MG INJ ONE (15:11)
[2021-04-05] MEDS ORDERED: ONDANSETRON 4 MG/2 ML VIAL ONE (15:11)
--- NOTE | 2021-04-05 15:37 | RAD REPORT ---
EXAM DESCRIPTION: US - Abdomen Exam Limited - 04/05/2021 3:17 pm CLINICAL HISTORY: US of GB;Abd pain COMPARISON: Abdomen Pelvis W Contrast dated 04/01/2021 FINDINGS: The gallbladder demonstrates no gallstones. No pericholecystic fluid or gallbladder wall t hickening. The common bile duct is normal measuring 4 mm. The liver demonstrates no findings of intrahepatic biliary dilatation. IMPRESSION: Unremarkable examination.
--- NOTE | 2021-04-05 16:01 | ER ---
Nurse's Notes [facility] Name: Courtney Schuster Age: 40 yrs Sex: Female : 1980 Arrival Date: 04/05/2021 Time: 13:18 Bed 13 Private MD: Diagnosis: Vomiting;Functional dyspepsia;Epigastric pain Presentation: 04/05 13:22 Chief complaint: Patient states: Continued abd pain since her last visit her this past ll1 weekend. Had more abd pain with N/V again today. Coronavirus screen: Vaccine status: Patient reports receiving the 2nd dose of the covid vaccine. Client denies travel out of the [place] in the last 14 days. At this time, the client does not indicate any symptoms associated with coronavirus-19. Ebola Screen: Patient denies travel to an Ebola-affected area in the 21 days before illness onset. Initial Sepsis Screen: Does the patient meet any 2 criteria? No. Patient's initial sepsis screen is negative. Does the patient have a suspected source of infection? Yes: Acute abdominal pain. Risk Assessment: Do you want to hurt yourself or someone else? Patient reports no desire to harm self or others. Onset of symptoms was March 31, 2021. 13:22 Method Of Arrival: Ambulatory ll1 13:22 Acuity: LEIF 3 ll1 Historical: - Allergies: 13:22 Amoxicillin; ll1 13:22 Codeine; ll1 13:22 PENICILLINS; ll1 - PMHx: 13:22 None; ll1 - PSHx: 13:22 section; ll1 - Immunization history:: Client reports receiving the 2nd dose of the Covid vaccine. - Social history:: Smoking status: Reported history of juuling and/or vaping. Patient denies any tobacco usage or history of. Screenin:45 Abuse screen: Denies threats or abuse. Denies injuries from another. Nutritional jt3 screening: No deficits noted. Tuberculosis screening: No symptoms or risk factors identified. Fall Risk None identified. Assessment: 13:45 General: Appears in no apparent distress. Behavior is calm, cooperative. Pain: jt3 Complains of pain in right upper quadrant and left upper quadrant Pain does not radiate. Pain currently is 7 out of 10 on a pain scale. Quality of pain is described as throbbing. Neuro: No deficits noted. Cardiovascular: No deficits noted. Respiratory: No deficits noted. GI: Bowel sounds present X 4 quads. Abd is soft in right upper quadrant and left upper quadrant Abdomen is tender to palpation Reports upper abdominal pain, nausea, vomiting, Pt. reports continued vomiting with a little blood in it. Alert and oriented x4. Vital Signs: 13:22 BP 120 / 84; Pulse 70; Resp 17; Temp 98.9; Pulse Ox 100% ; Weight 95.25 kg; Height 5 ll1 ft. 4 in. (162.56 cm); Pain 7/10; 14:37 BP 138 / 87; Pulse 58; Resp 16; Pulse Ox 100% on R/A; mh5 16:29 BP 126 / 82; Pulse 64; Resp 17; Pulse Ox 98% on R/A; jt3 13:22 Body Mass Index 36.05 (95.25 kg, 162.56 cm) ll1 ED Course: 13:18 Patient arrived in ED. am2 13:22 Arm band placed on. ll1 13:24 Triage completed. ll1 13:30 Maicol Rankin, SIMEON is Primary Nurse. jt3 13:31 Shakir Ni PA is PHCP. jr8 13:31 Maxwell Marinelli MD is Attending Physician. jr8 13:45 Patient has correct armband on for positive identification. Bed in low position. Call jt3 light in reach. Side rails up X2. 13:45 No provider procedures requiring assistance completed. Inserted saline lock: 24 gauge jt3 in right antecubital area, using aseptic technique. 13:46 Basic Metabolic Panel Sent. 5 13:46 CBC with Diff Sent. 5 13:46 Hepatic Function Sent. 5 13:46 Lipase Sent. 5 13:46 Initial lab(s) drawn, by pr, sent to lab. Inserted saline lock: 22 gauge in right 5 antecubital area, using aseptic technique. Blood collected. 13:48 Warm blanket given. Pulse ox on. NIBP on. mh5 15:17 US Abdomen Limited In Process Unspecified. EDMS 16:00 Wilson Khan MD is Referral Physician. jr8 17:14 IV discontinued, intact, bleeding controlled, No redness/swelling at site. Pressure jt3 dressing applied. Administered Medications: 15:29 Drug: Zofran (Ondansetron) 4 mg Route: IVP; Site: right antecubital; jt3 15:30 Drug: ProTONIX (pantoprazole) 40 mg Route: IVP; Site: right antecubital; jt3 Outcome: 16:00 Discharge ordered by MD. jones 17:14 Condition: stable jt3 17:14 Discharge instructions given to patient. 17:15 Patient left the ED. jt3 Signatures: Dispatcher [employer] EDMS Shakir Ni PA PA jr8 Tete Allen [facility] Breanne Cheek Anthony Tee RN RN ll1 Maicol Rankin RN RN jt3
--- NOTE | 2021-04-05 16:01 | EDPHYS ---
Physician Documentation [facility] Name: Courtney Schuster Age: 40 yrs Sex: Female : 1980 Arrival Date: 04/05/2021 Time: 13:18 Bed 13 Private MD: ED Physician Maxwell Marinelli HPI: 04/05 15:22 This 40 yrs old Black Female presents to ER via Ambulatory with complaints of Abdominal jr8 Pain, Vomiting, worsening of symptoms. 15:22 This is a 40-year-old female patient that presented to the emergency room with upper jr8 abdominal discomfort along with continued vomiting. Was recently seen for similar symptoms and had blood work and a CT scan that did not reveal anything acute at that time. Was sent home on medication for presumed gastroenteritis. Patient came back today for continued symptoms except now she feels like the pain is more of a burning sensation to the upper abdominal region.. Historical: - Allergies: 13:22 Amoxicillin; ll1 13:22 Codeine; ll1 13:22 PENICILLINS; ll1 - PMHx: 13:22 None; ll1 - PSHx: 13:22 section; ll1 - Immunization history:: Client reports receiving the 2nd dose of the Covid vaccine. - Social history:: Smoking status: Reported history of juuling and/or vaping. Patient denies any tobacco usage or history of. ROS: 15:22 Constitutional: Negative for fever, chills, and weight loss, Cardiovascular: Negative jr8 for chest pain, palpitations, and edema, Respiratory: Negative for shortness of breath, cough, wheezing, and pleuritic chest pain, Back: Negative for injury and pain, MS/Extremity: Negative for injury and deformity, Skin: Negative for injury, rash, and discoloration, Neuro: Negative for headache, weakness, numbness, tingling, and seizure. 15:22 Abdomen/GI: Positive for abdominal pain, nausea and vomiting. Exam: 15:22 Constitutional: This is a well developed, well nourished patient who is awake, alert, jr8 and in no acute distress. Cardiovascular: Regular rate and rhythm with a normal S1 and S2. No gallops, murmurs, or rubs. Normal PMI, no JVD. No pulse deficits. Respiratory: Lungs have equal breath sounds bilaterally, clear to auscultation and percussion. No rales, rhonchi or wheezes noted. No increased work of breathing, no retractions or nasal flaring. Back: No spinal tenderness. No costovertebral tenderness. Full range of motion. Skin: Warm, dry with normal turgor. Normal color with no rashes, no lesions, and no evidence of cellulitis. MS/ Extremity: Pulses equal, no cyanosis. Neurovascular intact. Full, normal range of motion. Neuro: Awake and alert, GCS 15, oriented to person, place, time, and situation. Cranial nerves II-XII grossly intact. Motor strength 5/5 in all extremities. Sensory grossly intact. 15:22 Abdomen/GI: Inspection: abdomen appears normal, Bowel sounds: active, all quadrants, Palpation: soft, in all quadrants, mild abdominal tenderness, in the epigastric area, mass, is not appreciated, rebound tenderness, is not appreciated, voluntary guarding, is not appreciated, involuntary guarding, is not appreciated, no appreciated organomegaly, Indicators: McBurney's point is not tender, Cifuentes's sign is negative, Rovsing's sign is negative, Liver: tenderness, is not appreciated. Vital Signs: 13:22 BP 120 / 84; Pulse 70; Resp 17; Temp 98.9; Pulse Ox 100% ; Weight 95.25 kg; Height 5 ll1 ft. 4 in. (162.56 cm); Pain 7/10; 14:37 BP 138 / 87; Pulse 58; Resp 16; Pulse Ox 100% on R/A; mh5 16:29 BP 126 / 82; Pulse 64; Resp 17; Pulse Ox 98% on R/A; jt3 13:22 Body Mass Index 36.05 (95.25 kg, 162.56 cm) ll1 MDM: 13:31 Patient medically screened. jr8 15:59 Differential diagnosis: cholecystitis, Cholelithiasis, diverticulitis, gastritis, jr8 gastroesophageal reflux disease, Hepatitis, non-specific abd pain, pancreatitis, Peptic Ulcer Disease. Data reviewed: vital signs, nurses notes, old medical records, lab test result(s), radiologic studies, ultrasound. Data interpreted: Pulse oximetry: on room air is 100 %. Interpretation: normal. Counseling: I had a detailed discussion with the patient and/or guardian regarding: the historical points, exam findings, and any diagnostic results supporting the discharge/admit diagnosis, lab results, radiology results, the need for outpatient follow up, a cosmetic consultant. ED course: Kaylene with patient that labs remained stable and ultrasound was unremarkable. Patient is feeling better at this time. Recommended at this point to give it a couple more days but ultimately may need to see gastroenterology who will refer to. If she were to run fever or become acutely worse to come back to the emergency room for further evaluation. Patient good with plan at this time.. 04/05 13:31 Order name: Basic Metabolic Panel; Complete Time: 14:45 jr8 04/05 13:31 Order name: CBC with Diff; Complete Time: 14:45 jr8 04/05 13:31 Order name: Hepatic Function; Complete Time: 14:45 jr8 04/05 13:31 Order name: Lipase; Complete Time: 14:45 jr8 04/05 14:45 Order name: US Abdomen Limited; Complete Time: 15:58 jr8 04/05 13:31 Order name: IV Saline Lock; Complete Time: 13:46 jr8 04/05 13:31 Order name: Labs collected and sent; Complete Time: 13:46 jr8 Administered Medications: 15:29 Drug: Zofran (Ondansetron) 4 mg Route: IVP; Site: right antecubital; jt3 15:30 Drug: ProTONIX (pantoprazole) 40 mg Route: IVP; Site: right antecubital; jt3 Disposition: 18:07 Co-signature as Attending Physician, Maxwell Marinelli MD I agree with the assessment and rn plan of care. Attestation: The patient's history, exam findings, diagnostics, and a summary of any interventions or procedures was reviewed in detail with Shakir GONZALEZ. Disposition Summary: 04/05/21 16:00 Discharge Ordered Location: Home jr8 Problem: new jr8 Symptoms: have improved jr8 Condition: Stable jr8 Diagnosis - Vomiting jr8 - Functional dyspepsia jr8 - Epigastric pain jr8 Followup: jr8 - With: Wilson Khan MD - When: 2 - 3 days - Reason: Recheck today's complaints, Continuance of care, Re-evaluation by your physician Discharge Instructions: - Discharge Summary Sheet jr8 - Gastritis, Adult jr8 Forms: - Medication Reconciliation Form jr8 - Thank You Letter jr8 - Antibiotic Education jr8 - Prescription Opioid Use jr8 - Work release form jt3 Signatures: Dispatcher [employer] Maxwell Almonte MD MD rn Shakir Ni PA PA jr8 Anthony Hidalgo RN RN ll1 Maicol Rankin RN RN jt3
[2021-04-05 19:05] VITALS: BP 138/87; O2SAT 100
[2021-04-05 19:07] VITALS: TEMP 98.9
== END 2021-04-05 17:15 | disposition home or self-care (01) ==
LOC: ER 13:16
DX: K30 Functional dyspepsia (principal); Z88.0 Allergy status to penicillin; Z88.1 Allergy status to other antibiotic agents; Z88.5 Allergy status to narcotic agent
CPT/HCPCS: 36415; 76705; 80048; 80076; 83690; 85025; 96374; 96375; 99284; C9113; J2405

== ENCOUNTER 2021-07-17 13:21 | Emergency (ER) | payer SELFPAY ==
[2021-07-17] MEDS ORDERED: METOCLOPRAMIDE 10 MG/2mL INJ ONE (14:22)
[2021-07-17] MEDS ORDERED: NA CHLORIDE 0.9% 1,000 ML ONE (14:23)
[2021-07-17] MEDS ORDERED: DIPHENHYDRAMINE 50 MG/ML VIAL ONE (14:23)
--- NOTE | 2021-07-17 17:09 | EDPHYS ---
Physician Documentation [facility] Name: Courtney Schuster Age: 41 yrs Sex: Female : 1980 Arrival Date: 07/17/2021 Time: 13:22 Bed 7 Private MD: ED Physician James Fowler HPI: 07/17 14:04 This 41 yrs old Black Female presents to ER via Ambulatory with complaints of Headache, jmm Diarrhea. 14:04 The patient complains of pain to the left taoism. Onset: The symptoms/episode jmm began/occurred gradually. Associated signs and symptoms: Pertinent negatives: fever. This is a 41 year old female with no chronic medical conditions that presents to the ED with complaints of left sided headache beginning yesterday evening. Patient has had similar episodes in the past. Also complains of nausea. . ANESTHESIOLOGY TECH: 13:40 LMP 06/20/2021 ss7 Historical: - Allergies: 13:39 Amoxicillin; ss7 13:39 Codeine; ss7 13:39 PENICILLINS; ss7 - Home Meds: 13:39 None [Active]; ss7 - PMHx: 13:39 None; ss7 - PSHx: 13:39 section; ss7 - Immunization history:: Pneumococcal vaccine is not up to date, Flu vaccine is not up to date. - Social history:: Smoking status: Patient/guardian denies using tobacco, the patient reports quitting approximately 1 years ago. ROS: 14:04 Constitutional: Negative for fever, chills, and weight loss, Cardiovascular: Negative jmm for chest pain, palpitations, and edema, Respiratory: Negative for shortness of breath, cough, wheezing, and pleuritic chest pain. 14:04 Abdomen/GI: Positive for vomiting. 14:04 All other systems are negative. Exam: 14:04 Constitutional: This is a well developed, well nourished patient who is awake, alert, jmm and in no acute distress. Head/Face: atraumatic. Eyes: EOMI, no conjunctival erythema appreciated ENT: Moist Mucus Membranes Neck: Trachea midline, Supple Chest/axilla: Normal chest wall appearance and motion. Cardiovascular: Regular rate and rhythm. No edema appreciated Respiratory: Normal respirations, no respiratory distress appreciated Abdomen/GI: Non distended, soft Back: Normal ROM Skin: General appearance color normal MS/ Extremity: Moves all extremities, no obvious deformities appreciated, no edema noted to the lower extremities Neuro: Awake and alert Psych: Behavior is normal, Mood is normal, Patient is cooperative and pleasant Vital Signs: 13:40 BP 133 / 67; Pulse 65; Resp 18; Temp 98.1; Pulse Ox 100% ; Weight 108.86 kg; Height 5 ss7 ft. 4 in. (162.56 cm); 13:59 BP 121 / 71; Pulse 66; Resp 18; Temp 98.9; Pulse Ox 100% ; cs9 14:38 BP 119 / 69; Pulse 57; Resp 18; Pulse Ox 100% on R/A; ww 16:18 BP 134 / 82; Pulse 60; Resp 18; Pulse Ox 100% on R/A; ww 13:40 Body Mass Index 41.20 (108.86 kg, 162.56 cm) ss7 MDM: 14:04 Patient medically screened. [facility] 17:08 Data reviewed: vital signs, nurses notes. Counseling: I had a detailed discussion with kenan the patient and/or guardian regarding: the historical points, exam findings, and any diagnostic results supporting the discharge/admit diagnosis, the need for outpatient follow up, to return to the emergency department if symptoms worsen or persist or if there are any questions or concerns that arise at home. ED course: Pain is relieved in the ED. Patient's has had similar symptoms in the past for many years. I do not currently suspect subarachnoid hemorrhage, patient's neck is supple, patient is afebrile nontoxic in appearance, I do not currently suspect meningitis. Patient advised follow with neurology for further evaluation otherwise given strict return precautions. Patient understood agrees plan of care.. 07/17 14:08 Order name: Saline Lock; Complete Time: 14:16 [facility] Administered Medications: 14:38 Drug: NS 0.9% 1000 ml Route: IV; Rate: 1 bolus; Site: right antecubital; ww 16:00 Follow up: Response: No adverse reaction; IV Status: Completed infusion; IV Intake: ph 1000ml 14:38 Drug: Reglan (metoCLOPramide) 20 mg Route: IVP; Site: right antecubital; ww 15:00 Follow up: Response: No adverse reaction ph 14:38 Drug: diphenhydrAMINE 25 mg Route: IVP; Site: right antecubital; ww 15:00 Follow up: Response: No adverse reaction ph Disposition: 07/18 09:27 Co-signature as Attending Physician, James Fowler MD I agree with the assessment and jr11 plan of care. Disposition Summary: 07/17/21 17:08 Discharge Ordered Location: Home [facility] Condition: Stable jmm Diagnosis - Headache jmm Followup: jm - With: Marcos Buitrago MD - When: 2 - 3 days - Reason: Recheck today's complaints, Continuance of care, Re-evaluation by your physician Discharge Instructions: - Discharge Summary Sheet jmm - Migraine Headache jmm Forms: - Medication Reconciliation Form [facility] - Thank You Letter m - Antibiotic Education [facility] - Prescription Opioid Use [facility] - Work release form Signatures: Roby Montano PA PA jmm Wood, Whitney, RN RN James Cantu MD MD [id number] Radha Garza RN RN ss7 Rupinder Landry RN ph
--- NOTE | 2021-07-17 17:09 | ER ---
Nurse's Notes [facility] Name: Courtney Schuster Age: 41 yrs Sex: Female : 1980 Arrival Date: 07/17/2021 Time: 13:22 Bed 7 Private MD: Diagnosis: Headache Presentation: 07/17 13:38 Chief complaint: Patient states: Pt c/o left side headache that began on yesterday with ss7 no relief from ibuprofen and tylenol. Denies migraine history. Denies neuro deficits. Coronavirus screen: Vaccine status: Patient reports receiving the 2nd dose of the covid vaccine. Ebola Screen: Patient denies travel to an Ebola-affected area in the 21 days before illness onset. No symptoms or risks identified at this time. Initial Sepsis Screen: Does the patient meet any 2 criteria? No. Patient's initial sepsis screen is negative. Does the patient have a suspected source of infection? No. Patient's initial sepsis screen is negative. Risk Assessment: Do you want to hurt yourself or someone else? Patient reports no desire to harm self or others. Onset of symptoms was July 17, 2021. 13:38 Method Of Arrival: Ambulatory [facility] 13:38 Acuity: LEIF 3 ss7 Triage Assessment: 13:39 Headache History: Denies prior headaches. General: Appears in no apparent distress. ss7 uncomfortable, Behavior is calm, cooperative, appropriate for age. [employer] PASTRY: 13:40 LMP 06/20/2021 ss7 Historical: - Allergies: 13:39 Amoxicillin; ss7 13:39 Codeine; ss7 13:39 PENICILLINS; ss7 - Home Meds: 13:39 None [Active]; ss7 - PMHx: 13:39 None; ss7 - PSHx: 13:39 section; ss7 - Immunization history:: Pneumococcal vaccine is not up to date, Flu vaccine is not up to date. - Social history:: Smoking status: Patient/guardian denies using tobacco, the patient reports quitting approximately 1 years ago. Screenin:41 Abuse screen: Denies threats or abuse. Nutritional screening: No deficits noted. ss7 Tuberculosis screening: No symptoms or risk factors identified. Fall Risk None identified. Assessment: 13:41 Pain: Complains of pain in left head Pain does not radiate. Pain currently is 8 out of ss7 10 on a pain scale. Quality of pain is described as throbbing, Aggravated by light. Neuro: No deficits noted. Level of Consciousness is awake, alert, obeys commands, Oriented to person, place, time, situation, Reports. Cardiovascular: Heart tones S1 S2. Respiratory: Breath sounds are clear bilaterally. GI: No deficits noted. : No deficits noted. EENT: No deficits noted. Derm: No deficits noted. Musculoskeletal: No deficits noted. 14:59 Reassessment: Patient appears in no apparent distress at this time. No changes from previously documented assessment. Patient and/or family updated on plan of care and expected duration. Pain level reassessed. Patient is alert, oriented x 3, equal unlabored respirations, skin warm/dry/pink. 16:17 Reassessment: Patient appears in no apparent distress at this time. No changes from ww previously documented assessment. Patient and/or family updated on plan of care and expected duration. Pain level reassessed. Patient is alert, oriented x 3, equal unlabored respirations, skin warm/dry/pink. Patient states feeling better. Vital Signs: 13:40 BP 133 / 67; Pulse 65; Resp 18; Temp 98.1; Pulse Ox 100% ; Weight 108.86 kg; Height 5 ss7 ft. 4 in. (162.56 cm); 13:59 BP 121 / 71; Pulse 66; Resp 18; Temp 98.9; Pulse Ox 100% ; cs9 14:38 BP 119 / 69; Pulse 57; Resp 18; Pulse Ox 100% on R/A; ww 16:18 BP 134 / 82; Pulse 60; Resp 18; Pulse Ox 100% on R/A; ww 13:40 Body Mass Index 41.20 (108.86 kg, 162.56 cm) 7 ED Course: 13:22 Patient arrived in ED. ds1 13:39 Triage completed. ss7 13:41 Patient has correct armband on for positive identification. Bed in low position. Call [facility] light in reach. 13:41 No provider procedures requiring assistance completed. 7 13:51 Rupinder Landry, SIMEON is Primary Nurse. ph 13:52 Arm band placed on Patient placed in an exam room. ph 13:53 Roby Montano PA is PHCP. [facility] 13:53 James Fowler MD is Attending Physician. jmm 14:00 Inserted saline lock: 20 gauge in right antecubital area, using aseptic technique. ww 17:08 Marcos Buitrago MD is Referral Physician. [facility] 17:26 intact, bleeding controlled, No redness/swelling at site. Pressure dressing applied. ww Administered Medications: 14:38 Drug: NS 0.9% 1000 ml Route: IV; Rate: 1 bolus; Site: right antecubital; ww 16:00 Follow up: Response: No adverse reaction; IV Status: Completed infusion; IV Intake: ph 1000ml 14:38 Drug: Reglan (metoCLOPramide) 20 mg Route: IVP; Site: right antecubital; ww 15:00 Follow up: Response: No adverse reaction ph 14:38 Drug: diphenhydrAMINE 25 mg Route: IVP; Site: right antecubital; ww 15:00 Follow up: Response: No adverse reaction ph Intake: 16:00 IV: 1000ml; Total: 1000ml. ph Outcome: 17:08 Discharge ordered by MD. [facility] 17:26 Discharged to home ambulatory. ww 17:26 Condition: stable 17:26 Discharge instructions given to patient, Instructed on discharge instructions, follow up and referral plans. safety practices, Demonstrated understanding of instructions, follow-up care. 17:27 Patient left the ED. Signatures: Roby Montano PA PA jmm Sanford, Demi ds1 Rupinder Landry, RN RN Yue Cadena cs9 Dianelys Blas RN RN ww Smith, Shana RN RN ss7
[2021-07-17 18:24] VITALS: O2SAT 100
[2021-07-17 18:25] VITALS: TEMP 98.9
[2021-07-17 18:28] VITALS: BP 134/82
== END 2021-07-17 17:27 | disposition home or self-care (01) ==
LOC: ER 13:21
DX: R51.9 Headache, unspecified (principal); Z88.0 Allergy status to penicillin; Z88.1 Allergy status to other antibiotic agents; Z88.5 Allergy status to narcotic agent
CPT/HCPCS: 96361; 96374; 96375; 99283; J1200; J2765; J7030

== ENCOUNTER 2023-10-19 15:46 | Emergency (ER) | payer SELFPAY ==
[2023-10-19] MEDS ORDERED: ONDANSETRON 4 MG/2 ML VIAL ONE (16:25)
[2023-10-19] MEDS ORDERED: KETOROLAC 30 MG/ML INJ ONE (16:25)
[2023-10-19] MEDS ORDERED: NA CHLORIDE 0.9% 1,000 ML ONE (16:25)
[2023-10-19] MEDS ORDERED: FAMOTIDINE 20 MG/2 ML VIAL IV ONE (16:25)
[2023-10-19 16:30] LABS: Absolute Eosinophils 0.1 K/uL (0-0.5); Absolute Lymphocytes (CBC) 3.1 K/uL (0.7-4.9); Absolute Monocytes 0.6 K/uL (0.1-1.3); Absolute Neutrophil 1.9 K/uL (1.8-8.0); Basophils % 0.5 % (0-1.3); Eosinophils % 1.8 % (0-4.4); Hematocrit 36.7 % (36.0-45.0); Hemoglobin 11.4 g/dL (12.0-15.0); Lymphocytes % 53.5 % (15.3-44.8); MCH 22.9 pg (27.0-35.0); MCHC 31.1 g/dL (32.0-36.0); MCV 73.6 fL (80-100); Monocytes % 11.1 % (3.3-12.3); Neutrophils % 33.1 % (41.7-73.7); Platelets 239 thou/uL (152-406); RBC Red Blood Cell Count 4.99 M/uL (3.86-4.86); Red Cell Distribution Width 15.2 % (12.1-15.2)
[2023-10-19 16:44] LABS: Specific Gravity 1.013 (1.005-1.030)
[2023-10-19 16:46] LABS: Albumin 3.1 g/dL (3.4-5.0); Albumin/Globulin Ratio 0.8 (1.1-1.8); Anion Gap 8.7 mEq/L (5.0-15.0); Bilirubin Total 0.2 mg/dL (0.2-1.0); Globulin 3.7 g/dL (2.3-3.5); Potassium 3.7 mEq/L (3.5-5.1); Protein, Total 6.8 g/dL (6.4-8.2)
[2023-10-19 17:05] LABS: Specific Gravity 1.013 (1.005-1.030); Sqamous Epithelial <5 /HPF (None Seen); Urine Bacteria None Seen /HPF (<20); Urine Bilirubin NEGATIVE (Negative); Urine Blood Trace (Negative); Urine Clarity Turbid (Clear); Urine Color Colorless (Yellow); Urine Culture Reflex Order NOT NEEDED; Urine Glucose NEGATIVE (Negative); Urine Ketones NEGATIVE (Negative); Urine Microscopic Reflex YN ORDER UMIC; Urine Mucus Slight /HPF (None Seen); Urine Nitrite NEGATIVE (Negative); Urine Protein NEGATIVE (Negative); Urine RBC <5 /HPF (None Seen); Urine Urobilinogen Normal (Normal); Urine WBC <5 /HPF (<5); Urine pH 5.5 (5.0-7.0)
--- NOTE | 2023-10-19 18:17 | RAD REPORT ---
EXAM DESCRIPTION: CT - Abdomen Pelvis W Contrast - 10/19/2023 5:13 pm CLINICAL HISTORY: ABD PAIN COMPARISON: Abdomen Pelvis W Contrast dated 04/01/2021 TECHNIQUE: Thin cut axial CT imaging of the abdomen and pelvis was performed following intravenous a dministration of 98 mL Isovue 300. Multiplanar reformats were generated and reviewed. All CT scans are performed using dose optimization technique as appropriate and may include automated exposure control or mA/KV adjustment according to patient size. FINDINGS: No suspicious findings in the lung bases. The liver, spleen, adrenal glands, and pancreas show no suspicious findings. Gallbladder and biliary tree are also without suspicious finding. Symmetric renal function is seen with no hydronephrosis or suspicious renal mass. No dilated bowel loops or bowel wall thickening. Nonspecific mild fluid opacification of nondistended small bowel loops in the central and lower abdomen. Appendix is unremarkable. No free air, free flui d or inflammatory stranding. No hernia, mass or bulky lymphadenopathy. Fullness of the endometrium ne ar the fundus, nonspecific. The urinary bladder is without significant finding. No suspicious bony findings. IMPRESSION: Nonspecific mild fluid opacification of nondistended small bowel, may reflect mild enter itis or diarrheal state. No other acute intra-abdominal process. Fullness of the fundal endometrium, nonspecific. Please correlate with menstrual phase.
--- NOTE | 2023-10-19 18:50 | ER ---
Nurse's Notes [facility] Name: Courtney Schuster Age: 43 yrs Sex: Female : 1980 Arrival Date: 10/19/2023 Time: 15:46 Bed 19 Private MD: Diagnosis: Diarrhea, unspecified;Abdominal pain, unspecified Presentation: 10/18 15:54 Chief complaint: Patient states: abdominal pain, n/v/d since Sunday. Coronavirus as6 screen: At this time, the client does not indicate any symptoms associated with coronavirus-19. Ebola Screen: No symptoms or risks identified at this time. Initial Sepsis Screen: Does the patient meet any 2 criteria? No. Patient's initial sepsis screen is negative. Does the patient have a suspected source of infection? No. Patient's initial sepsis screen is negative. Risk Assessment: Do you want to hurt yourself or someone else? Patient reports no desire to harm self or others. Onset of symptoms was October 15, 2023. 15:54 Method Of Arrival: Ambulatory as6 15:54 Acuity: LEIF 3 as6 Triage Assessment: 15:55 General: Appears in no apparent distress. uncomfortable, Behavior is calm, cooperative. as6 Pain: Complains of pain in abdomen. GI: Reports lower abdominal pain, upper abdominal pain, diarrhea, nausea, vomiting. [employer]TI[employer] WORKER: 15:56 LMP N/A - Post-menopause, Not as6 Historical: - Allergies: 15:55 Amoxicillin; as6 15:55 Codeine; as6 15:55 PENICILLINS; as6 - PMHx: 15:55 None; as6 - PSHx: 15:55 section; as6 - Immunization history:: Adult Immunizations up to date. - Infectious Disease History:: Denies. - Social history:: Smoking status: Reported history of juuling and/or vaping. Screenin:45 [facility] ED Fall Risk Assessment (Adult) History of falling in the last 3 months, kc6 including since admission No falls in past 3 months (0 pts) Confusion or Disorientation No (0 pts) Intoxicated or Sedated No (0 pts) Impaired Gait No (0 pts) Mobility Assist Device Used No (0 pt) Altered Elimination No (0 pt) Score/Fall Risk Level 0 - 2 = Low Risk. Abuse screen: Denies threats or abuse. Denies injuries from another. Nutritional screening: No deficits noted. Tuberculosis screening: No symptoms or risk factors identified. Assessment: 16:45 General: Appears in no apparent distress. comfortable, well groomed, well developed, kc6 Behavior is calm, cooperative, appropriate for age. Pain: Complains of pain in epigastric area. Neuro: Level of Consciousness is awake, alert, obeys commands, Oriented to person, place, time, situation, Appropriate for age. Cardiovascular: Capillary refill < 3 seconds. Respiratory: Airway is patent Trachea midline Respiratory effort is even, unlabored, Respiratory pattern is regular, symmetrical. GI: Abdomen is round non-distended, Bowel sounds present X 4 quads. Abd is soft X 4 quads Abdomen is tender to palpation in epigastric area Reports upper abdominal pain, diarrhea, nausea, vomiting. : No signs and/or symptoms were reported regarding the genitourinary system. EENT: No signs and/or symptoms were reported regarding the EENT system. Derm: No signs and/or symptoms reported regarding the dermatologic system. Skin is intact, is healthy with good turgor, Skin is pink, warm \T\ dry. Musculoskeletal: No signs and/or symptoms reported regarding the musculoskeletal system. Circulation, motion, and sensation intact. Capillary refill < 3 seconds, Range of motion: intact in all extremities. 17:47 Reassessment: Patient appears in no apparent distress at this time. No changes from kc6 previously documented assessment. Patient and/or family updated on plan of care and expected duration. Pain level reassessed. Patient is alert, oriented x 3, equal unlabored respirations, skin warm/dry/pink. 18:47 Reassessment: Patient appears in no apparent distress at this time. No changes from kc6 previously documented assessment. Patient and/or family updated on plan of care and expected duration. Pain level reassessed. Patient is alert, oriented x 3, equal unlabored respirations, skin warm/dry/pink. Vital Signs: 15:54 BP 120 / 72; Pulse 68; Resp 16 S; Temp 97.8(TE); Pulse Ox 98% on R/A; Weight 107.95 kg as6 (R); Height 5 ft. 4 in. (R); Pain 7/10; 16:48 BP 119 / 74; Pulse 57; Resp 19 S; Pulse Ox 100% on R/A; kc6 17:47 BP 121 / 77; Pulse 60; Resp 15 S; Pulse Ox 99% on R/A; kc6 15:54 Body Mass Index 40.85 (107.95 kg, 162.56 cm) as6 15:54 Pain Scale: Adult as6 ED Course: 15:51 Patient arrived in ED. mg5 15:53 Fady Camacho PA is PHCP. cp 15:53 Fady Corey MD is Attending Physician. cp 15:54 Arm band placed on left wrist. as6 15:55 Triage completed. as6 16:03 Nidia Norman, SIMEON is Primary Nurse. kc6 16:21 Inserted saline lock: 22 gauge in right antecubital area, using aseptic technique. kc6 Blood collected. 16:45 Patient has correct armband on for positive identification. Bed in low position. Call kc6 light in reach. Side rails up X2. Client placed on continuous cardiac and pulse oximetry monitoring. NIBP monitoring applied. Pillow given. 17:14 CT Abd/Pelvis - IV Contrast Only In Process Unspecified. EDMS 19:10 No provider procedures requiring assistance completed. IV discontinued, intact, kc6 bleeding controlled, No redness/swelling at site. Pressure dressing applied. Administered Medications: 16:33 Drug: NS 0.9% IV 1000 ml IV at 1 bolus Per protocol; 1000 mL bolus Route: IV; Rate: 1 kc6 bolus; Site: right antecubital; 19:10 Follow up: Response: No adverse reaction; IV Status: Completed infusion; IV Intake: kc6 1000ml 16:33 Drug: Famotidine IVP 20 mg IVP once; dilute with 10 mL 0.9% NaCl; give over 2 minutes kc6 Route: IVP; Site: right antecubital; 17:48 Follow up: Response: No adverse reaction kc6 16:33 Drug: TORadol - Ketorolac IVP 15 mg IVP once Route: IVP; Site: right antecubital; kc6 17:47 Follow up: Response: No adverse reaction kc6 16:33 Drug: Ondansetron IVP 4 mg IVP once; over 2 minutes Route: IVP; Site: right antecubital;kc6 17:47 Follow up: Response: No adverse reaction kc6 Medication: 19:11 VIS not applicable for this client. kc6 Intake: 19:10 IV: 1000ml; Total: 1000ml. kc6 Outcome: 18:50 Discharge ordered by MD. nell 19:10 Discharged to home ambulatory, kc6 19:10 Condition: good 19:10 Discharge instructions given to patient, Instructed on discharge instructions, follow up and referral plans. medication usage, Demonstrated understanding of instructions, follow-up care, medications, Prescriptions given X 2, 19:11 Patient left the ED. kc6 Signatures: Dispatcher [employer] EDMS Fady Camacho PA PA cp Slawson, Ashby RN RN [id number] Nidia Norman RN RN [id number] Emily Judd mg5
--- NOTE | 2023-10-19 18:51 | EDPHYS ---
Physician Documentation [facility] [place] Name: Courtney Schuster Age: 43 yrs Sex: Female : 1980 Arrival Date: 10/19/2023 Time: 15:46 Bed 19 Private MD: ED Physician Fady Corey HPI: 10/18 16:10 This 43 yrs old Black Female presents to ER via Ambulatory with complaints of Abdominal cp Pain, Vomiting/Diarrhea. 16:10 The patient presents with abdominal pain that is diffuse. cp 16:10 Onset: The symptoms/episode began/occurred 4 day(s) ago. Associated signs and symptoms: cp Pertinent positives: diarrhea, nausea, Pertinent negatives: blood in stools, constipation, dysuria, fever, vomiting the past 2 days. The symptoms are described as waxing/waning. Severity of pain: in the emergency department the pain is unchanged despite home interventions. 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 - Infectious Disease History:: Denies. - Social history:: Smoking status: Reported history of juuling and/or vaping. ROS: 16:15 Constitutional: Positive for poor PO intake, sweats, Negative for fever, cp 16:15 Eyes: Negative for injury, pain, redness, and discharge, cp 16:15 Abdomen/GI: Positive for abdominal pain, diarrhea, anorexia, Negative for constipation, black/tarry stool, rectal bleeding, Exam: 16:20 Constitutional: The patient appears in no acute distress, alert, awake, non-toxic, well cp developed, well nourished, obese, 16:20 Head/Face: Normocephalic, atraumatic. cp 16:20 Eyes: Periorbital structures: appear normal, Conjunctiva: normal, no exudate, no injection, Sclera: no appreciated abnormality, Lids and lashes: appear normal, bilaterally, 16:20 ENT: External ear(s): are unremarkable, Nose: is normal, Mouth: Lips: moist, Oral mucosa: moist, Posterior pharynx: Airway: no evidence of obstruction, patent, 16:20 Chest/axilla: Inspection: normal, 16:20 Cardiovascular: Rate: normal, Rhythm: regular, 16:20 Respiratory: the patient does not display signs of respiratory distress, Respirations: normal, no use of accessory muscles, no retractions, labored breathing, is not present, Breath sounds: are clear throughout, no decreased breath sounds, no stridor, no wheezing, 16:20 Abdomen/GI: Inspection: obese Bowel sounds: active, all quadrants, Palpation: soft, in all quadrants, mild abdominal tenderness, in the right upper quadrant and left upper quadrant, 16:20 Back: pain, that is mild, of the low back area and mid back area, ROM is normal, CVA tenderness, is absent, Vital Signs: 15:54 BP 120 / 72; Pulse 68; Resp 16 S; Temp 97.8(TE); Pulse Ox 98% on R/A; Weight 107.95 kg as6 (R); Height 5 ft. 4 in. (R); Pain 7/10; 16:48 BP 119 / 74; Pulse 57; Resp 19 S; Pulse Ox 100% on R/A; kc6 17:47 BP 121 / 77; Pulse 60; Resp 15 S; Pulse Ox 99% on R/A; kc6 15:54 Body Mass Index 40.85 (107.95 kg, 162.56 cm) as6 15:54 Pain Scale: Adult as6 MDM: 15:58 Patient medically screened. boubacar 17:00 Differential diagnosis: cholecystitis, Cholelithiasis, non-specific abd pain, Peptic cp Ulcer Disease, Perf. Duodenal Ulcer, Perf. Gastric Ulcer, Pyelonephritis, Ureterolithiasis, urinary tract infection. 18:50 Data reviewed: vital signs, nurses notes, lab test result(s), radiologic studies, CT cp scan, and as a result, I will discharge patient. 18:50 I considered the following discharge prescriptions or medication management in the emergency department Medications were administered in the Emergency Department. See MAR. Counseling: I had a detailed discussion with the patient and/or guardian regarding the historical points, exam findings, and any diagnostic results supporting the discharge/admit diagnosis, lab results, radiology results, to return to the emergency department if symptoms worsen or persist or if there are any questions or concerns that arise at home. Special discussion: Based on the patient's Hx, exam, and Dx evaluation, there is no indication for emergent surgery or inpatient Tx. It is understood by the patient/guardian that if the Sx's persist or worsen they need to return immediately for re-evaluation. 10/18 16:12 Order name: CBC with Diff; Complete Time: 17:24 cp 10/18 18:32 Interpretation: Normal except: RBC 4.99; HGB 11.4; MCV 73.6; MCH 22.9; MCHC 31.1; EDMAR% cp 33.1; LYM% 53.5. 10/18 16:12 Order name: CMP; Complete Time: 17:24 cp 10/18 18:32 Interpretation: Normal except: CL 114; ALB 3.1; GLOB 3.7; A/G 0.8. cp 10/18 16:12 Order name: Lipase; Complete Time: 17:24 cp 10/18 16:12 Order name: Test, Urine; Complete Time: 17:24 cp 10/18 16:12 Order name: Urinalysis w/ reflexes; Complete Time: 17:24 cp 10/18 18:33 Interpretation: Normal except: [facility] Turbid; UBLD Trace. cp 10/18 16:12 Order name: CT Abd/Pelvis - IV Contrast Only; Complete Time: 18:25 cp 10/18 16:12 Order name: IV Saline Lock; Complete Time: 16:21 cp 10/18 16:12 Order name: Labs collected and sent; Complete Time: 16:21 cp Administered Medications: 16:33 Drug: NS 0.9% IV 1000 ml IV at 1 bolus Per protocol; 1000 mL bolus Route: IV; Rate: 1 kc6 bolus; Site: right antecubital; 19:10 Follow up: Response: No adverse reaction; IV Status: Completed infusion; IV Intake: kc6 1000ml 16:33 Drug: Famotidine IVP 20 mg IVP once; dilute with 10 mL 0.9% NaCl; give over 2 minutes kc6 Route: IVP; Site: right antecubital; 17:48 Follow up: Response: No adverse reaction kc6 16:33 Drug: TORadol - Ketorolac IVP 15 mg IVP once Route: IVP; Site: right antecubital; kc6 17:47 Follow up: Response: No adverse reaction kc6 16:33 Drug: Ondansetron IVP 4 mg IVP once; over 2 minutes Route: IVP; Site: right antecubital;kc6 17:47 Follow up: Response: No adverse reaction kc6 Disposition Summary: 10/19/23 18:50 Discharge Ordered Notes: Location: Home cp Problem: new cp Symptoms: have improved cp Condition: Stable cp Diagnosis - Diarrhea, unspecified cp - Abdominal pain, unspecified cp Followup: cp - With: Private Physician - When: 2 - 3 days - Reason: Recheck today's complaints Discharge Instructions: - Discharge Summary Sheet cp - Abdominal Pain, Adult cp - Food Choices to Help Relieve Diarrhea, Adult cp - Diarrhea, Adult cp Forms: - Medication Reconciliation Form cp - Antibiotic Education cp - Prescription Opioid Use cp - Patient Portal Instructions cp - Leadership Thank You Letter cp - Work release form kc6 Prescriptions: - Zofran 4 mg Oral Tablet - take 1 tablet ORAL route every 12 hours As needed; 20 tablet; Refills: 0, cp Product Selection Permitted - dicyclomine 20 mg Oral tablet - take 1 tablet ORAL route 4 times per day; 20 tablet; Refills: 0, Product cp Selection Permitted Signatures: Dispatcher [employer] EDMS Fady Corey MD MD cha Page, Corey, PA PA cp Arnav Mckenzie RN RN as6 Nidia Norman RN RN kc6 Corrections: (The following items were deleted from the chart) 16:13 16:13 CBC+H.LAB.BRZ ordered. EDMS EDMS 16:13 16:13 COMPREHENSIVE METABOLIC PANEL+C.LAB.BRZ ordered. EDMS EDMS 16:13 16:13 LIPASE+C.LAB.BRZ ordered. EDMS EDMS 16:13 16:13 Test, Urine+UC.LAB.BRZ ordered. EDMS EDMS 16:13 16:13 Urinalysis+U.LAB.BRZ ordered. EDMS EDMS
[2023-10-19 19:33] VITALS: BP 121/77; TEMP 97.8; O2SAT 99
== END 2023-10-19 19:11 | disposition home or self-care (01) ==
LOC: ER 15:46
DX: R19.7 Diarrhea, unspecified (principal); R10.12 Left upper quadrant pain
CPT/HCPCS: 36415; 74177; 80053; 81001; 81025; 83690; 85025; 96361; 96374; 96375; 99284; J2405; J7030; Q9967